=== PATIENT | female | born 1975 | race Caucasian/White ===

== ENCOUNTER 2019-06-23 09:54 | Emergency (ER) | payer MEDICAID ==
[2019-06-23] MEDS ORDERED: LORazepam 2 MG/ML VIAL IVP STA (10:30)
[2019-06-23] MEDS ORDERED: FOLIC ACID INJ 1 MG, THIAMINE INJ 100 MG, MAGNESIUM SULFATE 2 GM, MULTIVITAMIN 10 ML in... IV STA ×5 (10:30)
--- NOTE | 2019-06-23 10:34 | ED Physician Documentation ---
PD HPI CHEST PAIN - Stated complaint Stated Complaint: CHEST/BACK PX - Chief complaint Chief Complaint: Cardiac - History obtained from History obtained from: Patient, Family - History of Present Illness Timing - onset: Last night Timing - onset during: Rest Timing - duration: Hours Timing - details: Gradual onset, Still present Quality: Pressure, Throbbing Location: Upper back Radiation: Back Improved by: Rest Worsened by: Movement, Palpation Associated symptoms: Nausea, Feeling faint / dizzy. No: Shortness of air, Diaphoresis, Vomiting, General Weakness, Palpitations, Cough Similar symptoms before: Has not had sx before Recently seen: Not recently seen - Additional information Additional information: 43-year-old female with a prior history of pain has upper back pain and she has developed some palpitations in her chest.She has had this pain in her back a number of times and this feels similar. The palpitations she is having in her chest are not. She feels that she is not able to get her chest to calm down. She does relate a significant amount of stress and that their house has been for sale for some time and there is now somebody looking at it. Review of Systems Constitutional: reports: Myalgias, Fatigue. denies: Fever, Chills Eyes: denies: Decreased vision Ears: denies: Ear pain Nose: denies: Rhinorrhea / runny nose, Congestion Throat: denies: Sore throat Cardiac: reports: Chest pain / pressure, Palpitations. denies: Pedal edema, Calf pain Respiratory: denies: Dyspnea, Cough, Wheezing GI: reports: Nausea. denies: Abdominal Pain, Vomiting : denies: Dysuria, Frequency Skin: denies: Rash Musculoskeletal: reports: Back pain. denies: Neck pain Neurologic: denies: Generalized weakness, Focal weakness, Numbness PD PAST MEDICAL HISTORY - Past Medical History Past Medical History: Yes Cardiovascular: Hypertension - Present Medications Home Medications: Ambulatory Orders Medication Instructions Recorded Confirmed Azithromycin [Zithromax] 250 mg PO DAILY #6 tablet 06/23/19 Lorazepam [Ativan] 1 mg PO Q6HR PRN #14 tablet 06/23/19 - Allergies Allergies/Adverse Reactions: Allergies Allergy/AdvReac Type Severity Reaction Status Date / Time No Known Drug Allergies Allergy Verified 06/23/19 10:01 - Social History Does the pt smoke?: Yes Smoking Status: Current every day smoker PD ED PE NORMAL - Vitals Vital signs reviewed: Yes (Tachycardic and hypertensive.) - General General: Alert and oriented X 3, No acute distress, Well developed/nourished - HEENT HEENT: Atraumatic, PERRL, EOMI, Ears normal, Moist mucous membranes, Pharynx benign, Dentition benign - Neck Neck: Supple, no meningeal sign, No bony TTP - Cardiac Cardiac: No murmur, Other (Tachycardia to 110) - Respiratory Respiratory: No respiratory distress, Clear bilaterally, Other (There is point tenderness to the central spine of the back in the paraspinous muscles between the shoulder blades.) - Abdomen Abdomen: Soft, Non tender - Back Back: No CVA TTP - Derm Derm: Normal color, Warm and dry, No rash - Extremities Extremities: No deformity, No edema, No calf tenderness / cord - Neuro Neuro: Alert and oriented X 3, 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, No motor deficit, No sensory deficit, Normal speech Eye Opening: Spontaneous Motor: Obeys Commands Verbal: Oriented GCS Score: 15 - Psych Psych: Normal mood, Normal affect Results - Vitals Vitals: Vital Signs - 24 hr 06/23/19 06/23/19 06/23/19 09:58 11:18 12:55 Temperature 36.7 C Heart Rate 113 H 76 79 Respiratory 18 12 17 Rate Blood Pressure 151/109 H 141/91 H 137/82 H O2 Saturation 100 100 99 06/23/19 14:00 Temperature Heart Rate 92 Respiratory 18 Rate Blood Pressure O2 Saturation 99 Oxygen O2 Source Room air - EKG (time done) 1004 Rate: Rate (enter#) (100) Rhythm: NSR QRS: LVH Compare to prior EKG: Old EKG unavailable Computer interpretation: Agree with computer - Labs Labs: Laboratory Tests 06/23/19 06/23/19 06/23/19 10:10 10:10 10:10 WBC RBC Hgb Hct MCV MCH MCHC RDW Plt Count MPV Neut # (Auto) Lymph # (Auto) [place] # (Auto) Eos # (Auto) Baso # (Auto) Absolute Nucleated RBC Nucleated RBC % D-Dimer 658.9 H Sodium 137 Potassium 3.8 Chloride 101 Carbon Dioxide 23 Anion Gap 13.0 BUN 15 Creatinine 0.9 Estimated GFR (MDRD) 68 L Glucose 116 H Calcium 8.9 Total Bilirubin 0.7 AST 33 ALT 25 Alkaline Phosphatase 81 Troponin I High Sens 14.5 Total Protein 8.2 Albumin 4.4 Globulin 3.8 Albumin/Globulin Ratio 1.2 Lipase 21 L Ethyl Alcohol 06/23/19 06/23/19 10:10 11:09 WBC 7.7 RBC 4.41 Hgb 11.8 L Hct 36.2 L MCV 82.1 MCH 26.8 L MCHC 32.6 RDW 14.5 Plt Count 334 MPV 10.0 Neut # (Auto) 6.1 Lymph # (Auto) 1.0 L [place] # (Auto) 0.5 Eos # (Auto) 0.0 Baso # (Auto) 0.0 Absolute Nucleated RBC 0.00 Nucleated RBC % 0.0 D-Dimer Sodium Potassium Chloride Carbon Dioxide Anion Gap BUN Creatinine Estimated GFR (MDRD) Glucose Calcium Total Bilirubin AST ALT Alkaline Phosphatase Troponin I High Sens Total Protein Albumin Globulin Albumin/Globulin Ratio Lipase Ethyl Alcohol < 5.0 - Rads (name of study) CHEST Radiology: Prelim report reviewed (Impression: 1. No acute disease in the chest.), EMP read indepedently, See rad report CT angio chest Radiology: Prelim report reviewed (Impression: 1. No evidence of pulmonary embolus, aortic aneurysm or aortic dissection. 2. Small focal areas of right upper lobe groundglass opacity, nonspecific, although typically infectious/inflammatory in etiology. No areas of dense consolidation. No pleural effusions. No pneumothorax. 3. Mildly enlarged right axillary nodes asymmetric in comparison to the right. The entire right breast is not included. Follow-up nonemergent mammogram and ultrasound recommended. 4. Small to moderate hiatal hernia. 5. cholelithiasis. 6. No acute osseous abnormality.) Procedures - IVC sono (time) 1025 Bedside IVC sono: IVC measures (cm) (1.52), IVC collapsed c insp (cm) (0.82), Euvolemia PD MEDICAL DECISION MAKING - ED course Complexity details: reviewed old records, reviewed results, re-evaluated patient, considered differential, d/w patient, d/w family ED course: Previously well 43-year-old female with a sensation of palpitations in her chest arrives to the emergency department hypertensive and tachycardic and she is found to have a normal volume. She denies any likelihood of alcohol withdrawal as she states that she usually drinks 2 24 ounce beers per day and she has not deviated from that. She does indicate a significant amount of stress at home with a potential for their home being sold and a concern with where they will live. Here in the emergency department an IV is begun a banana bag is infused she is given a milligram of Ativan intravenously and a work-up was ensued including an x-ray of the patient's chest a d-dimer a troponin and electrocardiogram which does show some LVH. Her d-dimer is positive and a CT scan of the chest is obtained with contrast demonstrating a number of findings. She does not have pulmonary embolism or aortic disease. She does have a small hiatal hernia and she does have axillary lymphadenopathy with a concern for breast cancer as well as cholelithiasis. There is question of atypical infection in the right chest. I discussed the findings with the patient including need for follow-up mammogram and the presence of the hiatal hernia. She is given a GI cocktail without relief. She continues to have some soreness in the chest 1-07/09 and I have not come up with an explanation. She did feel the ativan helped some. Departure - Departure Disposition: Home, Self Care Clinical Impression: Atypical chest pain, Atypical pneumonia, Axillary lymphadenopathy, Anxiety Condition: Stable Instructions: ED Chest Pain Atypical Unkn Cause, Lymphadenopathy, ED Stress React, ED Pneumonia Adult Follow-Up: Bernadette Cruz PA [Provider Admit Priv/Credential] - Prescriptions: Lorazepam [Ativan] 1 mg PO Q6HR PRN #14 tablet PRN Reason: Anxiety Azithromycin [Zithromax] 250 mg PO DAILY #6 tablet Comments: Today there were several findings on your CAT scan. One important detail is to have a follow-up mammogram done of your right breast. There is a suspicion of the possibility of breast cancer. Follow-up with CARLEE Cruz. In addition there is the appearance of an atypical pneumonia on the CT and azithromycin is indicated. There is a hiatal hernia and gall stones present as well.
[2019-06-23 10:51] LABS: ALBUMIN 4.4 g/dL (3.2-5.5); ALBUMIN/GLOBULIN RATIO 1.2 (1.0-2.2); BILIRUBIN,TOTAL 0.7 mg/dL (0.2-1.0); CALCIUM 8.9 mg/dL (8.5-10.3); CREATININE 0.9 mg/dL (0.4-1.0); TOTAL PROTEIN 8.2 g/dL (6.7-8.2)
--- NOTE | 2019-06-23 11:03 | XRAY Report ---
Reason: chest/back pain Procedure Date: 06/23/2019 Accession Number: [id number] / [id number] Procedure: XR - Chest 2 View X-Ray CPT Code: 07906 Final Report FULL RESULT: EXAM: CHEST RADIOGRAPHY EXAM DATE: 06/23/2019 10:57 AM. CLINICAL HISTORY: Chest/back pain. COMPARISON: None. TECHNIQUE: 2 views. FINDINGS: Lungs/Pleura: No focal opacities evident. No pleural effusion. No pneumothorax. Normal volumes. Mediastinum: Heart and mediastinal contours are unremarkable. Other: Degenerative changes of the thoracic spine. IMPRESSION: 1. No acute disease in the chest. RADIA
[2019-06-23 11:14] LABS: BASOPHILS % (AUTO) 0.4 %; EOSINOPHILS % (AUTO) 0.4 %; HGB - HEMOGLOBIN 11.8 g/dL (12.0-16.0); LYMPHOCYTES % (AUTO) 13.1 %; MEAN CORPUSCULAR HEMOGLOBIN 26.8 pg (27.0-31.0); MEAN CORPUSCULAR HGB CONC 32.6 g/dL (32.0-36.0); MEAN CORPUSCULAR VOLUME 82.1 fL (81.0-99.0); MONOCYTES # (AUTO) 0.5 10^3/uL (0.0-1.0); MONOCYTES % (AUTO) 6.3 %; NEUTROPHILS # (AUTO) 6.1 10^3/uL (1.5-6.6); NEUTROPHILS % (AUTO) 79.5 %; PLT - PLATELET COUNT 334 10^3/uL (130-450); RED BLOOD COUNT 4.41 10^6/uL (4.20-5.40); RED CELL DISTRIBUTION WIDTH 14.5 % (12.0-15.0); WHITE BLOOD COUNT 7.7 x10^3/uL (4.8-10.8)
[2019-06-23] MEDS ORDERED: IOVERSOL 320 100 ML VIAL IVP ONE ×2 (12:15→13:22)
--- NOTE | 2019-06-23 13:51 | CT Report ---
Reason: elevated d-dimer Procedure Date: 06/23/2019 Accession Number: [id number] / [id number] Procedure: CT - ANGIO CHEST W/WO CPT Code: Final Report FULL RESULT: EXAM: CT ANGIOGRAM CHEST EXAM DATE: 06/23/2019 01:21 PM. CLINICAL HISTORY: Elevated D-dimer. COMPARISON: 06/23/2019. TECHNIQUE: Routine helical imaging was performed through the chest in the pulmonary arterial phase. IV Contrast: 80 cc of Optiray 320. Reconstructions: Coronal 3-D MIP reconstructions.Sagittal and coronal. In accordance with CT protocol optimization, one or more of the following dose reduction techniques were utilized for this exam: automated exposure control, adjustment of mA and/or KV based on patient size, or use of iterative reconstructive technique. FINDINGS: Pulmonary Arteries: Diagnostic quality: Adequate through the segmental arteries. No evidence for acute or chronic pulmonary emboli. RV/LV is within normal limits. There is no interventricular septal bowing. There is no reflux of contrast material in the IVC. Lungs/Pleura: No no bronchial obstruction. No pleural effusions. No pneumothorax. Small areas of groundglass opacity are seen in the right lung apex. Nor vascular congestion. Mediastinum: Heart size is normal. No mediastinal hematoma. Small to moderate hiatal hernia. Mildly prominent although subcentimeter mediastinal lymph nodes are identified. Prominent right axillary lymph nodes are seen slightly rounded measuring up to 8-9 mm in short axis dimension. The entire right and left breasts are not included. No internal mammary lymph node enlargement or inferior cervical lymph node enlargement is definitively identified. Visualized thyroid gland is unremarkable. Thoracic Aorta: Unremarkable. Upper Abdomen: Contracted gallbladder containing calcified gallstones. Otherwise included portions of the upper abdomen are unremarkable. Other: Degenerative changes of the thoracic spine. No acute osseous abnormality identified. IMPRESSION: 1. No evidence of pulmonary embolus, aortic aneurysm or aortic dissection. 2. Small focal areas of right upper lobe groundglass opacity, nonspecific, although typically infectious/inflammatory in etiology. No areas of dense consolidation. No pleural effusions. No pneumothorax. 3. Mildly enlarged right axillary nodes asymmetric in comparison to the right. The entire right breast is not included. Follow up nonemergent mammogram and ultrasound recommended. 4. Small to moderate hiatal hernia. 5. Cholelithiasis. 6. No acute osseous abnormality. RADIA
[2019-06-23] MEDS ORDERED: LIDOCAINE VISCOUS 2% 15 ML UDC MM STA (14:40)
[2019-06-23] MEDS ORDERED: MAG HYDROX/AL HYDROX/SIMETH 30 ML UDC PO STA (14:40)
[2019-06-23 15:27] VITALS: BP 162/97
== END 2019-06-23 15:27 | disposition home or self-care (01) ==
LOC: ED 09:54
DX: J18.9 Pneumonia, unspecified organism (principal); R07.89 Other chest pain; R59.0 Localized enlarged lymph nodes; F41.9 Anxiety disorder, unspecified; I11.9 Hypertensive heart disease without heart failure; R00.0 Tachycardia, unspecified; K44.9 Diaphragmatic hernia without obstruction or gangrene; K80.20 Calculus of gallbladder without cholecystitis without obstruction; R79.89 Other specified abnormal findings of blood chemistry; F17.200 Nicotine dependence, unspecified, uncomplicated
CPT/HCPCS: 36415; 71046; 71275; 80053; 80320; 83690; 84484; 85025; 85379; 93005; 96374; 99284; A9270; J2060; J3411; Q9967

== ENCOUNTER 2019-07-01 19:05 | Outpatient (CLI) | payer MEDICAID | END 2019-07-01 19:06 | disposition critical access hospital (66) | LOC: EMS 19:05 | PROVIDERS: ATTEND Surgery | DX: R07.9 Chest pain, unspecified (principal); R42 Dizziness and giddiness; R23.1 Pallor | CPT/HCPCS: A0425; A0429; A0999 ==

== ENCOUNTER 2019-07-01 19:41 | Emergency (ER) | payer MEDICAID ==
--- NOTE | 2019-07-01 19:48 | ED Physician Documentation ---
History of Present Illness - Stated complaint Stated Complaint: CP - Chief complaint Chief Complaint: Cardiac - History obtained from History obtained from: Patient (Patient is a 43-year-old female who presents with a chief complaint of chest pain, syncope, lightheadedness she was seen here 1 week ago and had a work-up that included a negative CT of the chest and negative chest x-ray she was started on azithromycin At that time.She denies any personal family history of sudden in young age and mother, father, brother sister.She also was given a prescription for benzodiazepines that she reports she has been taking as well.She denies any illicit drug use or excessive alcohol use.She denies any history of [place] or stroke or any history of pulmonary embolism or DVT.) Review of Systems Constitutional: reports: Reviewed and negative Eyes: reports: Reviewed and negative Ears: reports: Reviewed and negative Nose: reports: Reviewed and negative Throat: reports: Reviewed and negative Cardiac: reports: Chest pain / pressure, Palpitations Respiratory: reports: Reviewed and negative GI: reports: Reviewed and negative : reports: Reviewed and negative Skin: reports: Reviewed and negative Musculoskeletal: reports: Reviewed and negative. denies: Neck pain, Back pain Neurologic: reports: Near syncope, Syncope. denies: Generalized weakness, Focal weakness, Numbness, Difficulty speaking, Seizure, Confused, Altered mental status, Headache, Head injury Psychiatric: reports: Reviewed and negative Endocrine: reports: Reviewed and negative Immunocompromised: reports: Reviewed and negative PD PAST MEDICAL HISTORY - Past Medical History Cardiovascular: Hypertension Respiratory: Asthma - Past Surgical History HEENT: Other - Present Medications Home Medications: Ambulatory Orders Medication Instructions Recorded Confirmed Azithromycin [Zithromax] 250 mg PO DAILY #6 tablet 06/23/19 Lorazepam [Ativan] 1 mg PO Q6HR PRN #14 tablet 06/23/19 - Allergies Allergies/Adverse Reactions: Allergies Allergy/AdvReac Type Severity Reaction Status Date / Time No Known Drug Allergies Allergy Verified 07/01/19 19:43 - Social History Does the pt smoke?: Yes Smoking Status: Current every day smoker Does the pt drink ETOH?: Yes Does the pt have substance abuse?: No PD ED PE NORMAL - Vitals Vital signs reviewed: Yes - General General: Alert and oriented X 3, No acute distress, Well developed/nourished - HEENT HEENT: Atraumatic, PERRL, EOMI, Ears normal, Moist mucous membranes, Pharynx benign - Neck Neck: Supple, no meningeal sign, No bony TTP, No adenopathy, Thyroid normal, No JVD, No bruit - Cardiac Cardiac: RRR, No murmur, Strong equal pulses - Respiratory Respiratory: No respiratory distress, Clear bilaterally - Abdomen Abdomen: Normal bowel sounds, Soft, Non tender, Non distended - Back Back: No CVA TTP, No spinal TTP - Derm Derm: Normal color, Warm and dry, No rash - Extremities Extremities: No deformity, No tenderness to palpate, Normal ROM s pain, No edema, No calf tenderness / cord - Neuro Neuro: Alert and oriented X 3, 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, No motor deficit, No sensory deficit, Normal speech - Psych Psych: Normal mood, Normal affect Results - Vitals Vitals: Vital Signs - 24 hr 07/01/19 07/01/19 19:43 19:53 Temperature 37.9 C H 37.9 C H Heart Rate 90 85 Respiratory 18 14 Rate Blood Pressure 134/97 H 134/97 H O2 Saturation 100 99 Oxygen O2 Source Room air - EKG (time done) 19:45 Rate: Other (Rate of 77 HI interval 129 QRS 107 QTC 444 P waves are upright in leads I, II and III inverted in aVR there is no HI depression elevation in leads to aVR respectively there is mild left axis deviation there is good R wave progression there is no acute ST segment elevation or depression there is no shortened HI interval and there is no biphasic T waves.) - Labs Labs: Laboratory Tests 07/01/19 07/01/19 07/01/19 20:45 20:45 20:45 WBC RBC Hgb Hct MCV MCH MCHC RDW Plt Count MPV Neut # (Auto) Lymph # (Auto) [place] # (Auto) Eos # (Auto) Baso # (Auto) Absolute Nucleated RBC Nucleated RBC % Sodium 132 L Potassium 3.7 Chloride 98 L Carbon Dioxide 21 Anion Gap 13.0 BUN 23 H Creatinine 0.9 Estimated GFR (MDRD) 68 L Glucose 96 Calcium 9.2 Total Bilirubin 0.6 AST 23 ALT 24 Alkaline Phosphatase 65 Troponin I High Sens 7.6 B-Natriuretic Peptide 7 Total Protein 7.9 Albumin 4.2 Globulin 3.7 Albumin/Globulin Ratio 1.1 Lipase 22 Urine Color Urine Clarity Urine pH Ur Specific [place] Urine Protein Urine Glucose (UA) Urine Ketones Urine Occult Blood Urine Nitrite Urine Bilirubin Urine Urobilinogen Ur Leukocyte Esterase Urine RBC Urine WBC Ur Squamous Epith Cells Urine Bacteria Urine Mucus Ur Microscopic Review Urine Culture Comments Urine HCG, Qual Urine Opiates Screen Ur Oxycodone Screen Urine Methadone Screen Ur Propoxyphene Screen Ur Barbiturates Screen Ur Tricyclics Screen Ur Phencyclidine Scrn Ur Amphetamine Screen U Methamphetamines Scrn U Benzodiazepines Scrn Urine Cocaine Screen U Cannabinoids Screen Ethyl Alcohol < 5.0 Influenza A (Rapid) Influenza B (Rapid) 07/01/19 07/01/19 07/01/19 20:45 21:10 21:10 WBC 7.3 RBC 4.49 Hgb 11.9 L Hct 38.2 MCV 85.1 MCH 26.5 L MCHC 31.2 L RDW 14.6 Plt Count 365 MPV 10.4 Neut # (Auto) 5.5 Lymph # (Auto) 1.2 L [place] # (Auto) 0.6 Eos # (Auto) 0.1 Baso # (Auto) 0.1 Absolute Nucleated RBC 0.00 Nucleated RBC % 0.0 Sodium Potassium Chloride Carbon Dioxide Anion Gap BUN Creatinine Estimated GFR (MDRD) Glucose Calcium Total Bilirubin AST ALT Alkaline Phosphatase Troponin I High Sens B-Natriuretic Peptide Total Protein Albumin Globulin Albumin/Globulin Ratio Lipase Urine Color YELLOW Urine Clarity CLEAR Urine pH 6.0 Ur Specific [place] 1.025 Urine Protein 30 H Urine Glucose (UA) NEGATIVE Urine Ketones TRACE Urine Occult Blood NEGATIVE Urine Nitrite NEGATIVE Urine Bilirubin NEGATIVE Urine Urobilinogen 0.2 (NORMAL) Ur Leukocyte Esterase NEGATIVE Urine RBC 0-5 Urine WBC 0-3 Ur Squamous Epith Cells MANY Squamous H Urine Bacteria Few Urine Mucus Few Strands Ur Microscopic Review INDICATED Urine Culture Comments NOT INDICATED Urine HCG, Qual NEGATIVE Urine Opiates Screen NEGATIVE Ur Oxycodone Screen NEGATIVE Urine Methadone Screen NEGATIVE Ur Propoxyphene Screen NEGATIVE Ur Barbiturates Screen NEGATIVE Ur Tricyclics Screen NEGATIVE Ur Phencyclidine Scrn NEGATIVE Ur Amphetamine Screen NEGATIVE U Methamphetamines Scrn NEGATIVE U Benzodiazepines Scrn POSITIVE H Urine Cocaine Screen NEGATIVE U Cannabinoids Screen POSITIVE H Ethyl Alcohol Influenza A (Rapid) Influenza B (Rapid) 07/01/19 21:25 WBC RBC Hgb Hct MCV MCH MCHC RDW Plt Count MPV Neut # (Auto) Lymph # (Auto) [place] # (Auto) Eos # (Auto) Baso # (Auto) Absolute Nucleated RBC Nucleated RBC % Sodium Potassium Chloride Carbon Dioxide Anion Gap BUN Creatinine Estimated GFR (MDRD) Glucose Calcium Total Bilirubin AST ALT Alkaline Phosphatase Troponin I High Sens B-Natriuretic Peptide Total Protein Albumin Globulin Albumin/Globulin Ratio Lipase Urine Color Urine Clarity Urine pH Ur Specific [place] Urine Protein Urine Glucose (UA) Urine Ketones Urine Occult Blood Urine Nitrite Urine Bilirubin Urine Urobilinogen Ur Leukocyte Esterase Urine RBC Urine WBC Ur Squamous Epith Cells Urine Bacteria Urine Mucus Ur Microscopic Review Urine Culture Comments Urine HCG, Qual Urine Opiates Screen Ur Oxycodone Screen Urine Methadone Screen Ur Propoxyphene Screen Ur Barbiturates Screen Ur Tricyclics Screen Ur Phencyclidine Scrn Ur Amphetamine Screen U Methamphetamines Scrn U Benzodiazepines Scrn Urine Cocaine Screen U Cannabinoids Screen Ethyl Alcohol Influenza A (Rapid) Negative Influenza B (Rapid) Negative PD MEDICAL DECISION MAKING - ED course Complexity details: reviewed old records (Patient's previous medical records were reviewed it appeared the patient was treated for some sort of atypical pneumonia with azithromycin as she had a CT of the chest to rule out pulmonary embolism which was negative for pulmonary embolism however CT possibly showed some area of inflammation or infection patient ultimately was treated with azithromycin her sodium was low today at 132 her previous sodium level is 137.The patient does report an associated cough and some associated lightheadedness this could possibly explain her symptoms currently.The patient currently is afebrile but her temperature is 37.9 Celsius.), re-evaluated patient (patient reexamined, she is non toxic appearing. she was updated on results. informed of hyponatremia. patient has finished azithromycin. patient will be discharged with close follow up.) Departure - Departure Disposition: 01 Home, Self Care Clinical Impression: Near syncope, Walking pneumonia, Hyponatremia Condition: Good Instructions: Pneumia Mycoplasma, Hyponatremia Dc Follow-Up: YOUR,DOCTOR [Other] Comments: Follow up with your primary care provider this week. Return to the emergency department with any concerns.
[2019-07-01] MEDS ORDERED: SODIUM CHLORIDE 0.9% 1,000 ML IV ONE (20:04)
--- NOTE | 2019-07-01 20:55 | XRAY Report ---
Reason: SOB Procedure Date: 07/01/2019 Accession Number: [id number] / [id number] Procedure: XR - Chest 1 View X-Ray CPT Code: 40789 Final Report FULL RESULT: EXAM: CHEST RADIOGRAPHY EXAM DATE: 07/01/2019 08:18 PM. CLINICAL HISTORY: SOB. COMPARISON: CHEST 2 VIEW 06/23/2019 10:42 AM. TECHNIQUE: 1 view. FINDINGS: Lungs/Pleura: No focal opacities evident. No pleural effusion. No pneumothorax. Mediastinum: Heart size is normal. Trachea is midline. Other: None. IMPRESSION: Negative for an acute cardiopulmonary abnormality. RADIA
--- NOTE | 2019-07-01 21:02 | CT Report ---
Reason: SYNCOPE Procedure Date: 07/01/2019 Accession Number: [id number] / [id number] Procedure: CT - HEAD WO CPT Code: Final Report FULL RESULT: EXAM: CT HEAD EXAM DATE: 07/01/2019 08:32 PM. CLINICAL HISTORY: SYNCOPE. Loss of consciousness. Lightheaded. COMPARISON: None. TECHNIQUE: Multiaxial CT images were obtained from the foramen magnum to the vertex. Reformats: Sagittal and coronal. IV contrast: None. In accordance with CT protocol optimization, one or more of the following dose reduction techniques were utilized for this exam: automated exposure control, adjustment of mA and/or KV based on patient size, or use of iterative reconstructive technique. FINDINGS: Parenchyma: There appears to be mild bilateral frontal lobe atrophy with prominence of the CSF space. No mass-effect or midline shift. No evidence for edema. No evidence for acute intracranial hemorrhage. Extraaxial Spaces: Normal for age. No subdural or epidural collections identified. Ventricles: Normal in size and position. Sinuses and Orbits: Imaged paranasal sinuses, orbits, and mastoids show no significant abnormality. Bones: No evidence of fracture or calvarial defect. IMPRESSION: No acute findings are seen. There appears to be mild bilateral frontal lobe atrophy with prominence of the CSF space. RADIA
[2019-07-01 21:05] LABS: BASOPHILS # (AUTO) 0.1 10^3/uL (0.0-0.1); BASOPHILS % (AUTO) 0.7 %; EOSINOPHILS # (AUTO) 0.1 10^3/uL (0.0-0.7); EOSINOPHILS % (AUTO) 1.1 %; HGB - HEMOGLOBIN 11.9 g/dL (12.0-16.0); LYMPHOCYTES # (AUTO) 1.2 10^3/uL (1.5-3.5); LYMPHOCYTES % (AUTO) 15.7 %; MEAN CORPUSCULAR HEMOGLOBIN 26.5 pg (27.0-31.0); MEAN CORPUSCULAR HGB CONC 31.2 g/dL (32.0-36.0); MEAN CORPUSCULAR VOLUME 85.1 fL (81.0-99.0); MEAN PLATELET VOLUME 10.4 fL (7.9-10.8); MONOCYTES # (AUTO) 0.6 10^3/uL (0.0-1.0); MONOCYTES % (AUTO) 7.8 %; NEUTROPHILS # (AUTO) 5.5 10^3/uL (1.5-6.6); NEUTROPHILS % (AUTO) 74.4 %; PLT - PLATELET COUNT 365 10^3/uL (130-450); RED BLOOD COUNT 4.49 10^6/uL (4.20-5.40); RED CELL DISTRIBUTION WIDTH 14.6 % (12.0-15.0); WHITE BLOOD COUNT 7.3 x10^3/uL (4.8-10.8)
[2019-07-01 21:19] LABS: ALBUMIN 4.2 g/dL (3.2-5.5); ALBUMIN/GLOBULIN RATIO 1.1 (1.0-2.2); ALKALINE PHOSPHATASE 65 IU/L (42-121); ALT ALANINE AMINOTRANSFERASE 24 IU/L (10-60); AST ASPARTATE AMINOTRANSFERASE 23 IU/L (10-42); BILIRUBIN,TOTAL 0.6 mg/dL (0.2-1.0); BUN - BLOOD UREA NITROGEN 23 mg/dL (6-20); CALCIUM 9.2 mg/dL (8.5-10.3); CARBON DIOXIDE - CO2 21 mmol/L (21-32); CHLORIDE 98 mmol/L (101-111); CREATININE 0.9 mg/dL (0.4-1.0); GFR - MDRD 68 (>89); GLUCOSE 96 mg/dL (70-100); LIPASE 22 U/L (22-51); SODIUM 132 mmol/L (135-145); TOTAL PROTEIN 7.9 g/dL (6.7-8.2)
[2019-07-01 21:20] LABS: MUDS CUTOFF CONCENTRATIONS CUTOFF CONC BELOW:
[2019-07-01 21:25] LABS: BILIRUBIN,URINE NEGATIVE (NEGATIVE); GLUCOSE, URINE (UA) NEGATIVE (NEGATIVE); KETONES,URINE (UA) TRACE mg/dL (NEGATIVE); LEUKOCYTE ESTERASE, URINE NEGATIVE (NEGATIVE); NITRITE,URINE NEGATIVE (NEGATIVE); OCCULT BLOOD,URINE NEGATIVE (NEGATIVE); PROTEIN,URINE 30 mg/dL (NEGATIVE); UROBILINOGEN,URINE 0.2 (NORMAL) E.U./dL (NORMAL)
[2019-07-01 21:28] LABS: CLARITY,URINE CLEAR (CLEAR); HCG UR QUAL NEGATIVE
[2019-07-01 21:39] LABS: AMPHETAMINE SCREEN,URINE NEGATIVE (NEGATIVE); BENZODIAZEPINES SCREEN, URINE POSITIVE (NEGATIVE); COCAINE SCREEN URINE NEGATIVE (NEGATIVE); METHADONE SCREEN, URINE NEGATIVE (NEGATIVE); METHAMPHETAMINES SCREEN, URINE NEGATIVE (NEGATIVE); OPIATE SCREEN, URINE NEGATIVE (NEGATIVE); OXYCODONE SCREEN, URINE NEGATIVE (NEGATIVE); PROPOXYPHENE SCREEN, URINE NEGATIVE (NEGATIVE); TRICYCLIC ANTIDEPRESSANT,URINE NEGATIVE (NEGATIVE)
[2019-07-01 21:46] LABS: BACTERIA,URINE Few /HPF (None Seen); MUCUS,URINE Few Strands; RBC,URINE 0-5 /HPF (0-5); SQUAMOUS EPITHELIAL CELL,UR MANY Squamous (<= Few)
[2019-07-01 22:23] VITALS: BP 120/81
== END 2019-07-01 22:24 | disposition home or self-care (01) ==
LOC: EDUNIT# → ED 19:41
DX: R55 Syncope and collapse (principal); J18.9 Pneumonia, unspecified organism; E87.1 Hypo-osmolality and hyponatremia; I10 Essential (primary) hypertension; F17.200 Nicotine dependence, unspecified, uncomplicated
CPT/HCPCS: 36415; 70450; 71045; 80053; 80306; 80320; 81001; 81003; 81025; 83690; 83880; 84484; 85025; 87086; 87275; 87276; 93005; 99284; 99285

== ENCOUNTER 2019-07-22 12:12 | Emergency (ER) | payer MEDICAID ==
[2019-07-22 12:53] LABS: RAPID STREP SCREEN Negative (Negative)
[2019-07-22] MEDS ORDERED: DEXAMETHASONE 10 MG/ML VIAL PO STA (13:27)
[2019-07-22] MEDS ORDERED: CHERRY SYRUP 10 ML UDC PO ONE (13:27)
--- NOTE | 2019-07-22 13:33 | ED Physician Documentation ---
PD HPI URI - Stated complaint Stated Complaint: THROAT SWELLING - Chief complaint Chief Complaint: Heent - History obtained from History obtained from: Patient, Family - History of Present Illness Timing - onset: How many days ago (5) Timing duration: Days (5) Timing details: Gradual onset, Still present Associated symptoms: Nasal congestion, Rhinorrhea, Sore throat, Dry cough, Dyspnea. No: Fever, Chills Contributing factors: Sick contact Improves by: Rest, Medication Worsened by: Activity Similar symptoms before: Diagnosis (pneumonia) Recently seen: Emergency Dept - Additional information Additional information: 43-year-old female who had an atypical pneumonia at the end of May has finished a 5-day course of azithromycin for that and she was seen again in the emergency department for a syncopal episode at the conclusion of that treatment. There were no new findings. Today the patient is in the emergency department with a sensation that her throat is closing up. She has had a cough over the past week and she feels something tickling in the back of her throat. She has not had any production of sputum with a cough she has not had any fever she has been using her inhaler but no more than usual. Review of Systems Constitutional: denies: Fever, Chills, Myalgias Eyes: denies: Decreased vision Ears: denies: Ear pain Nose: reports: Rhinorrhea / runny nose, Congestion Throat: reports: Sore throat. denies: Dental pain / toothache Cardiac: denies: Chest pain / pressure, Palpitations Respiratory: reports: Cough. denies: Dyspnea GI: denies: Abdominal Pain, Nausea, Vomiting : denies: Dysuria, Frequency PD PAST MEDICAL HISTORY - Past Medical History Past Medical History: Yes Cardiovascular: Hypertension Respiratory: Asthma - Past Surgical History Past Surgical History: Yes HEENT: Other - Present Medications Home Medications: Ambulatory Orders Medication Instructions Recorded Confirmed Azithromycin [Zithromax] 250 mg PO DAILY #6 tablet 06/23/19 Lorazepam [Ativan] 1 mg PO Q6HR PRN #14 tablet 06/23/19 Amox/Clav 875/125 [Augmentin] 1 each PO Q12H #20 tablet 07/22/19 - Allergies Allergies/Adverse Reactions: Allergies Allergy/AdvReac Type Severity Reaction Status Date / Time No Known Drug Allergies Allergy Verified 07/22/19 13:22 - Social History Does the pt smoke?: Yes Smoking Status: Current every day smoker Does the pt drink ETOH?: Yes Does the pt have substance abuse?: No - Immunizations Immunizations are current?: Yes - POLST Patient has POLST: No PD ED PE NORMAL - Vitals Vital signs reviewed: Yes (hpyertensive ) - General General: Alert and oriented X 3, No acute distress, Well developed/nourished - HEENT HEENT: Atraumatic, PERRL, EOMI, Ears normal, Other (The uvula is mildly swollen it is not erythematous there is no exudate teeth are without evidence of drainage.) - Neck Neck: Supple, no meningeal sign, No bony TTP - Cardiac Cardiac: RRR, No murmur - Respiratory Respiratory: No respiratory distress, Other (Diminished breath sounds) - Abdomen Abdomen: Soft, Non tender - Back Back: No CVA TTP, No spinal TTP - Derm Derm: Normal color, Warm and dry, No rash - Extremities Extremities: No deformity, No edema - Neuro Neuro: Alert and oriented X 3, 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, No motor deficit, No sensory deficit, Normal speech Eye Opening: Spontaneous Motor: Obeys Commands Verbal: Oriented GCS Score: 15 - Psych Psych: Normal mood, Normal affect Results - Vitals Vitals: Vital Signs - 24 hr 07/22/19 07/22/19 07/22/19 12:20 12:25 12:39 Temperature 36.3 C L 36.5 C Heart Rate 97 97 90 Respiratory 16 16 14 Rate Blood Pressure 157/117 H 157/117 H 150/100 H O2 Saturation 99 99 100 07/22/19 14:08 Temperature Heart Rate 75 Respiratory 15 Rate Blood Pressure 157/92 H O2 Saturation 96 Oxygen O2 Source Room air - Labs Labs: Laboratory Tests 07/22/19 12:33 Group A Strep Rapid Negative - Rads (name of study) chest Radiology: Prelim report reviewed (Impression: No acute findings.), EMP read indepedently, See rad report PD MEDICAL DECISION MAKING - ED course Complexity details: considered differential, d/w patient ED course: 43-year-old female with a persistent cough feels that her throat is swelling in the back she does have some mild enlargement of the uvula toward is touching the back of her throat. She is administered 10 mg of dexamethasone here orally Departure - Departure Disposition: 01 Home, Self Care Clinical Impression: Uvulitis Condition: Stable Instructions: ED Uvulitis Follow-Up: [facility] [Provider Group] Prescriptions: Amox/Clav 875/125 [Augmentin] 1 each PO Q12H #20 tablet
--- NOTE | 2019-07-22 14:32 | XRAY Report ---
Reason: persistent cough Procedure Date: 07/22/2019 Accession Number: [id number] / [id number] Procedure: XR - Chest 2 View X-Ray CPT Code: 41269 Final Report FULL RESULT: EXAM: CHEST RADIOGRAPHY EXAM DATE: 07/22/2019 02:00 PM. CLINICAL HISTORY: Persistent cough for 5 days. COMPARISON: 07/01/2019 radiograph. TECHNIQUE: 2 views. FINDINGS: Lungs/Pleura: No focal opacities evident. No pleural effusion. No pneumothorax. Normal volumes. Mediastinum: Heart and mediastinal contours are unremarkable. Other: Minimal anterior endplate spurring is in the thoracic spine. IMPRESSION: No acute findings. RADIA
[2019-07-22 15:00] VITALS: BP 150/96
== END 2019-07-22 14:59 | disposition home or self-care (01) ==
LOC: ED 12:12
DX: K12.2 Cellulitis and abscess of mouth (principal); I10 Essential (primary) hypertension; F17.200 Nicotine dependence, unspecified, uncomplicated
CPT/HCPCS: 71046; 87070; 87430; 99284; A9270

== ENCOUNTER 2020-01-21 10:20 | Outpatient (CLI) | payer MEDICAID ==
--- NOTE | 2020-01-22 09:27 | Mammography Report ---
BILATERAL DIGITAL DIAGNOSTIC MAMMOGRAM 3D/2D: 01/21/2020 CLINICAL: Patient is here to follow up on an incidental finding on CT Chest done 06/23/2019 / [facility] Baseline mammogram. No prior exams were available for comparison. CT chest 06/23/2019. The tissue of both breasts is heterogeneously dense. This may lower the sensitivity of mammography. No significant masses, calcifications, or other findings are seen in either breast. IMPRESSION: INCOMPLETE: NEEDS ADDITIONAL IMAGING EVALUATION No mammographic evidence of malignancy. A targeted ultrasound of the right axilla is recommended for previously seen asymmetric lymph nodes. This exam was interpreted at Station ID: [id number]. NOTE: For mammograms, a report in lay terms will be sent to the patient. Approximately 15% of breast malignancies will not be visualized mammographically. In the management of a palpable breast mass, a negative mammogram must not discourage biopsy of a clinically suspicious lesion. Electronically Signed By: Thuan Arvizu M.D. slc/:01/21/2020 12:18:42 ACR BI-RADS Category 0: Incomplete 3340F PARENCHYMAL PATTERN: (D) - The breast(s) demonstrate(s) heterogeneously dense fibroglandular parjessiey ma. BI-RADS CATEGORY: (0) - 0 Ultrasound [id number] Immediate follow-up LATERALITY: (B)
--- NOTE | 2020-01-22 09:27 | Ultrasound Report ---
LIMITED ULTRASOUND OF RIGHT BREAST AND AXILLA: 01/21/2020 CLINICAL: Patient returns today to evaluate asymmetry in the right breast. Patient returns today to e valuate a density in the right breast. Comparison is made to exam dated: 01/21/2020 mammogram - [facility]. Real-time ultrasound of the right breast upper outer quadrant and axilla regions was performed. Houser scale images of the real-time examination were reviewed. No significant abnormalities were seen sonographically in the right breast or the right axilla. IMPRESSION: NEGATIVE There is no sonographic evidence of malignancy. A 1 year screening mammogram is recommended. Exam findings were conveyed to the patient. This exam was interpreted at Station ID: [id number]. Electronically Signed By: Thuan Arvizu M.D. slc/:01/21/2020 12:20:16 Ultrasound BI-RADS: 1 Negative BI-RADS CATEGORY: (1) - 1 RECOMMENDATION: (ANNUAL) - Recommend routine annual screening mammography. [id number] 1 year screening LATERALITY: (B)
== END 2020-01-21 10:21 | disposition home or self-care (01) ==
LOC: DI 10:20
PROVIDERS: ATTEND Registered Nurse
DX: R59.0 Localized enlarged lymph nodes (principal); R92.8 Other abnormal and inconclusive findings on diagnostic imaging of breast
CPT/HCPCS: 76642; 77066

== ENCOUNTER 2020-10-03 10:45 | Emergency (ER) | payer MEDICAID ==
--- NOTE | 2020-10-03 11:45 | ED Physician Documentation ---
PD HPI HEENT - Stated complaint Stated Complaint: SOA/TOOTH PX - Chief complaint Chief Complaint: General - History obtained from History obtained from: Patient - History of Present Illness Timing - onset: Today (had had dental infection right lower molar and got Rx Amox by dental office. was feeling better and finished abx 3 days ago. Now with return of swelling and pain same dental area.) Timing - duration: Days (had pain for days last week until abx and again starting today quickly) Timing - details: Abrupt onset, Still present Location: Tooth (right lower molar) Associated symptoms: Facial swelling. No: Fever, Swollen nodes, Headache Recently seen: Clinic (dentist last week and has appt for extraction this coming week.) Review of Systems Constitutional: denies: Fever, Chills Throat: denies: Sore throat Respiratory: denies: Cough PD PAST MEDICAL HISTORY - Past Medical History Cardiovascular: Hypertension Respiratory: Asthma - Past Surgical History Past Surgical History: Yes HEENT: Other - Present Medications Home Medications: Ambulatory Orders Medication Instructions Recorded Confirmed Clindamycin [Cleocin] 300 mg PO TID 7 Days #20 cap 10/03/20 HYDROcod/ACETAM 5/325 [[place] 5/325] 1 ea PO Q6H PRN #15 tablet 10/03/20 Lisinopril/Hydrochlorothiazide 1 each PO DAILY #20 tablet 10/03/20 [Zestoretic 20-12.5 mg Tablet] Lisinopril/Hydrochlorothiazide 1 each PO DAILY 10/03/20 10/03/20 [Zestoretic 20-25 mg Tablet] Ondansetron Odt [Zofran] 4 mg TL Q6H PRN #15 tablet 10/03/20 Sucralfate [Carafate] 1 gm PO QPM #30 tablet 10/03/20 - Allergies Allergies/Adverse Reactions: Allergies Allergy/AdvReac Type Severity Reaction Status Date / Time No Known Drug Allergies Allergy Verified 10/03/20 10:51 - Social History Does the pt smoke?: Yes Smoking Status: Current every day smoker Does the pt drink ETOH?: Yes Does the pt have substance abuse?: No - Immunizations Immunizations are current?: Yes - POLST Patient has POLST: No PD ED PE NORMAL - Vitals Vital signs reviewed: Yes - General General: Alert and oriented X 3, Well developed/nourished, Other (appears in pain due to right lower tooth, with local swelling right mandible/face. ) - HEENT HEENT: Moist mucous membranes, Pharynx benign. No: Dentition benign (right lower 3rd molar with significant decay and gum on buccal side with swelling. No fluctuance per se. Locally tender. ) - Neck Neck: Supple, no meningeal sign, No adenopathy - Cardiac Cardiac: RRR, No murmur - Respiratory Respiratory: Clear bilaterally - Derm Derm: Normal color, Warm and dry - Neuro Neuro: Alert and oriented X 3, No motor deficit, No sensory deficit, Normal speech Results - Vitals Vitals: Vital Signs - 24 hr 10/03/20 10/03/20 10/03/20 10:45 11:55 12:37 Temperature 36.7 C Heart Rate 77 81 82 Respiratory 16 16 16 Rate Blood Pressure 184/99 H 168/100 H 189/104 H O2 Saturation 99 100 98 Oxygen O2 Source Room air PD MEDICAL DECISION MAKING - ED course Complexity details: considered differential, d/w patient Departure - Departure Disposition: 01 Home, Self Care Clinical Impression: Dental infection, Pain, dental Reflux esophagitis Qualifiers: Esophagitis bleeding: without hemorrhage Qualified Code(s): K21.00 - Gastro- esophageal reflux disease with esophagitis, without bleeding Hypertension Qualifiers: Hypertension type: unspecified Qualified Code(s): I10 - Essential (primary) hypertension Condition: Stable Record reviewed to determine appropriate education?: Yes Instructions: ED Abscess Dental Follow-Up: Hanh Smallwood ARNP [Primary Care Provider] - Prescriptions: Sucralfate [Carafate] 1 gm PO QPM #30 tablet Clindamycin [Cleocin] 300 mg PO TID 7 Days #20 cap HYDROcod/ACETAM 5/325 [[place] 5/325] 1 ea PO Q6H PRN #15 tablet PRN Reason: Pain Lisinopril/Hydrochlorothiazide [Zestoretic 20-12.5 mg Tablet] 1 each PO DAILY #20 tablet Ondansetron Odt [Zofran] 4 mg TL Q6H PRN #15 tablet PRN Reason: Nausea / Vomiting Comments: Hydrated. Tylenol every 6 hours if needed for pain or hydrocodone if needed for worse pain. Continue your omeprazole twice daily for now and then once daily after a week if you are feeling better regarding the reflux. I had sacral fate at night before bed to see if it helps reduce the overnight refluxing and irritation. Also prop the head of the bed up slightly or sleep with added pillow. No meals for several hours before bed and no evening alcohol to help reduce reflux as well. I wrote a short-term prescription for your blood pressure medicine until you are able to get regular refills from your primary care. Clindamycin antibiotic 3 times daily for the infection. Ondansetron if needed for nausea. Follow-up with the dentist as planned later this week. Discharge Date/Time: 10/03/20 13:14
[2020-10-03] MEDS ORDERED: CLINDAMYCIN 150 MG CAPSULE PO STA (12:24)
[2020-10-03] MEDS ORDERED: ONDANSETRON ODT 4 MG TABLET TL STA (12:24)
[2020-10-03] MEDS ORDERED: ACETAMINOPHEN 325 MG TABLET PO STA (12:24)
[2020-10-03] MEDS ORDERED: MAG HYDROX/AL HYDROX/SIMETH 30 ML UDC PO STA (12:24)
[2020-10-03 12:39] VITALS: BP 189/104
== END 2020-10-03 13:14 | disposition home or self-care (01) ==
LOC: ED 10:45
DX: K04.7 Periapical abscess without sinus (principal); K21.00 Gastro-esophageal reflux disease with esophagitis, without bleeding; I10 Essential (primary) hypertension; F17.200 Nicotine dependence, unspecified, uncomplicated; Z79.899 Other long term (current) drug therapy
CPT/HCPCS: 99284; A9270; Q0162

== ENCOUNTER 2020-11-05 11:59 | Outpatient (CLI) | payer MEDICAID | END 2020-11-05 12:00 | disposition critical access hospital (66) | LOC: EMS 11:59 | DX: R55 Syncope and collapse (principal) | CPT/HCPCS: A0425; A0427; A0999 ==

== ENCOUNTER 2020-11-05 12:30 | Emergency (ER) | payer MEDICAID ==
--- OUTSIDE RECORDS SUMMARY | 2020-11-05 12:54 | EXTERNAL MEDICAL SUMMARY RPT | Continuity of Care Document ---
:1975 Demographics Phone Unavailable Preferred Language Unknown Marital Status Unknown Voodoo Affiliation Unknown Race Unknown Ethnic Group Unknown Author Organization [place] Address [address] [phone] Phone Allergies Encounters Medications Problems Results
[2020-11-05 13:15] VITALS: BP 117/71
[2020-11-05] MEDS ORDERED: SODIUM CHLORIDE 0.9% 1,000 ML IV STA ×2 (13:17)
[2020-11-05 13:23] LABS: BASOPHILS # (AUTO) 0.1 10^3/uL (0.0-0.1); BASOPHILS % (AUTO) 0.3 %; EOSINOPHILS # (AUTO) 0.1 10^3/uL (0.0-0.7); EOSINOPHILS % (AUTO) 0.4 %; HCT - HEMATOCRIT 42.8 % (37.0-47.0); HGB - HEMOGLOBIN 13.6 g/dL (12.0-16.0); LYMPHOCYTES # (AUTO) 1.4 10^3/uL (1.5-3.5); LYMPHOCYTES % (AUTO) 5.7 %; MEAN CORPUSCULAR HEMOGLOBIN 26.5 pg (27.0-31.0); MEAN CORPUSCULAR HGB CONC 31.8 g/dL (32.0-36.0); MEAN CORPUSCULAR VOLUME 83.3 fL (81.0-99.0); MEAN PLATELET VOLUME 10.2 fL (7.9-10.8); MONOCYTES # (AUTO) 0.8 10^3/uL (0.0-1.0); NEUTROPHILS # (AUTO) 22.7 10^3/uL (1.5-6.6); NEUTROPHILS % (AUTO) 90.1 %; PLT - PLATELET COUNT 381 10^3/uL (130-450); RED BLOOD COUNT 5.14 10^6/uL (4.20-5.40); RED CELL DISTRIBUTION WIDTH 13.7 % (12.0-15.0); WHITE BLOOD COUNT 25.1 x10^3/uL (4.8-10.8)
[2020-11-05 13:27] LABS: SLIDE REVIEW? Indicated
[2020-11-05 13:37] LABS: ALBUMIN 3.7 g/dL (3.2-5.5); ALBUMIN/GLOBULIN RATIO 0.9 (1.0-2.2); BILIRUBIN,TOTAL 0.6 mg/dL (0.2-1.0); CALCIUM 9.3 mg/dL (8.5-10.3); CREATININE 0.8 mg/dL (0.4-1.0); POTASSIUM 3.4 mmol/L (3.5-5.0); TOTAL PROTEIN 7.6 g/dL (6.7-8.2)
--- NOTE | 2020-11-05 13:37 | ED Physician Documentation ---
History of Present Illness - Stated complaint Stated Complaint: WEAKNESS - Chief complaint Chief Complaint: General - History obtained from History obtained from: Patient, Family - History of Present Illness Timing: Today Pain level max: 0 Pain level now: 0 - Additonal information Additional information: Patient is a 44-year-old female who states she felt nauseated, lightheaded and near syncopal today. She is unsure if she actually lost consciousness or not. She states she believes that she passed out in the car ride here and had an accidental bowel movement. She states that she does have a history of seizures, last seizure was about 5 years ago and she states it was related to opiate withdrawal. She states that she has not been using any opiates or other drugs recently. She states she does drink alcohol daily. She states "a few beers". She states her medications have not changed except she was not taking her lisinopril for a week or 2, restarted this 2 days ago. Did not take it today. Denies any abdominal pain, chest pain, shortness of breath, fevers, chills, cough, recent illness. No recent travel. Review of Systems Constitutional: denies: Fever, Chills GI: denies: Vomiting : denies: Dysuria Skin: denies: Rash Musculoskeletal: denies: Neck pain, Back pain Neurologic: denies: Headache PD PAST MEDICAL HISTORY - Past Medical History Past Medical History: Yes Cardiovascular: Hypertension Respiratory: Asthma - Past Surgical History Past Surgical History: Yes HEENT: Other - Present Medications Home Medications: Ambulatory Orders Medication Instructions Recorded Confirmed Clindamycin [Cleocin] 300 mg PO TID 7 Days #20 cap 10/03/20 HYDROcod/ACETAM 5/325 [[place] 5/325] 1 ea PO Q6H PRN #15 tablet 10/03/20 Lisinopril/Hydrochlorothiazide 1 each PO DAILY #20 tablet 10/03/20 [Zestoretic 20-12.5 mg Tablet] Lisinopril/Hydrochlorothiazide 1 each PO DAILY 10/03/20 10/03/20 [Zestoretic 20-25 mg Tablet] Ondansetron Odt [Zofran] 4 mg TL Q6H PRN #15 tablet 10/03/20 Sucralfate [Carafate] 1 gm PO QPM #30 tablet 10/03/20 cephALEXin [Keflex] 500 mg PO Q6H #20 cap 11/05/20 - Allergies Allergies/Adverse Reactions: Allergies Allergy/AdvReac Type Severity Reaction Status Date / Time No Known Drug Allergies Allergy Verified 11/05/20 12:43 - Social History Does the pt smoke?: No Smoking Status: Never smoker Does the pt drink ETOH?: Yes Does the pt have substance abuse?: No - Immunizations Immunizations are current?: No - POLST Patient has POLST: No PD ED PE NORMAL - Vitals Vital signs reviewed: Yes - General General: Alert and oriented X 3, No acute distress, Well developed/nourished - HEENT HEENT: Atraumatic, PERRL, Moist mucous membranes, Pharynx benign - Neck Neck: Supple, no meningeal sign - Cardiac Cardiac: RRR, Strong equal pulses - Respiratory Respiratory: No respiratory distress, Clear bilaterally - Abdomen Abdomen: Soft, Non tender, Non distended - Back Back: No spinal TTP - Derm Derm: Warm and dry - Extremities Extremities: No edema, No calf tenderness / cord - Neuro Neuro: Alert and oriented X 3, 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, No motor deficit, No sensory deficit, Normal speech Eye Opening: Spontaneous Motor: Obeys Commands Verbal: Oriented GCS Score: 15 - Psych Psych: Normal mood, Normal affect Results - Vitals Vitals: Vital Signs - 24 hr 11/05/20 11/05/20 11/05/20 12:32 13:02 13:04 Temperature 36.3 C L Heart Rate 77 86 Heart Rate [ 103 H Sitting] Heart Rate [ 117 H Standing] Heart Rate [ 89 Supine] Respiratory 14 15 Rate Blood Pressure 129/72 126/68 Blood Pressure 129/82 H [Sitting] Blood Pressure 109/70 [Standing] Blood Pressure 117/71 [Supine] O2 Saturation 99 96 Oxygen O2 Source Room air - EKG (time done) 1242 Rate: Rate (enter#) (83) Rhythm: NSR [place]: Normal Intervals: Normal NC, Prolonged QT (borderline) QRS: Normal Ischemia: Normal ST segments - Labs Labs: Laboratory Tests 11/05/20 11/05/20 11/05/20 13:19 13:19 13:19 WBC 25.1 H RBC 5.14 Hgb 13.6 Hct 42.8 MCV 83.3 MCH 26.5 L MCHC 31.8 L RDW 13.7 Plt Count 381 MPV 10.2 Neut # (Auto) 22.7 H Lymph # (Auto) 1.4 L [place] # (Auto) 0.8 Eos # (Auto) 0.1 Baso # (Auto) 0.1 Absolute Nucleated RBC 0.00 Nucleated RBC % 0.0 Manual Slide Review Indicated Sodium 138 Potassium 3.4 L Chloride 106 Carbon Dioxide 16 L Anion Gap 16.0 H BUN 22 H Creatinine 0.8 Estimated GFR (MDRD) 78 L Glucose 113 H Calcium 9.3 Total Bilirubin 0.6 AST 21 ALT 20 Alkaline Phosphatase 56 Total Protein 7.6 Albumin 3.7 Globulin 3.9 Albumin/Globulin Ratio 0.9 L Lipase 25 Urine Color Urine Clarity Urine pH Ur Specific [place] Urine Protein Urine Glucose (UA) Urine Ketones Urine Occult Blood Urine Nitrite Urine Bilirubin Urine Urobilinogen Ur Leukocyte Esterase Urine RBC Urine WBC Ur Squamous Epith Cells Amorphous Sediment Urine Bacteria Urine Mucus Ur Microscopic Review Urine Culture Comments Urine HCG, Qual Urine Opiates Screen Ur Oxycodone Screen Urine Methadone Screen Ur Propoxyphene Screen Ur Barbiturates Screen Ur Tricyclics Screen Ur Phencyclidine Scrn Ur Amphetamine Screen U Methamphetamines Scrn U Benzodiazepines Scrn Urine Cocaine Screen U Cannabinoids Screen Ethyl Alcohol < 5.0 11/05/20 11/05/20 13:40 13:40 WBC RBC Hgb Hct MCV MCH MCHC RDW Plt Count MPV Neut # (Auto) Lymph # (Auto) [place] # (Auto) Eos # (Auto) Baso # (Auto) Absolute Nucleated RBC Nucleated RBC % Manual Slide Review Sodium Potassium Chloride Carbon Dioxide Anion Gap BUN Creatinine Estimated GFR (MDRD) Glucose Calcium Total Bilirubin AST ALT Alkaline Phosphatase Total Protein Albumin Globulin Albumin/Globulin Ratio Lipase Urine Color DARK YELLOW Urine Clarity CLOUDY Urine pH 6.0 Ur Specific [place] 1.025 Urine Protein TRACE Urine Glucose (UA) NEGATIVE Urine Ketones NEGATIVE Urine Occult Blood SMALL H Urine Nitrite NEGATIVE Urine Bilirubin NEGATIVE Urine Urobilinogen 0.2 (NORMAL) Ur Leukocyte Esterase NEGATIVE Urine RBC 6-10 H Urine WBC 6-10 H Ur Squamous Epith Cells FEW Squamous Amorphous Sediment Rare Urine Bacteria Many H Urine Mucus Few Strands Ur Microscopic Review INDICATED Urine Culture Comments NOT INDICATED Urine HCG, Qual NEGATIVE Urine Opiates Screen NEGATIVE Ur Oxycodone Screen NEGATIVE Urine Methadone Screen NEGATIVE Ur Propoxyphene Screen NEGATIVE Ur Barbiturates Screen NEGATIVE Ur Tricyclics Screen NEGATIVE Ur Phencyclidine Scrn NEGATIVE Ur Amphetamine Screen NEGATIVE U Methamphetamines Scrn NEGATIVE U Benzodiazepines Scrn NEGATIVE Urine Cocaine Screen NEGATIVE U Cannabinoids Screen NEGATIVE Ethyl Alcohol - Rads (name of study) head CT Radiology: Prelim report reviewed, EMP read contemporaneously, See rad report (No acute intracranial process. ) PD MEDICAL DECISION MAKING - ED course Complexity details: reviewed results, re-evaluated patient, considered differential, d/w patient ED course: 44-year-old female with what sounds like a likely seizure today. She does have a history of seizures in the past but they were thought to be due to opiate abuse. She denies using any drugs or opiates. No acute findings on head CT. She does have a leukocytosis and evidence of metabolic acidosis, this will go along with the seizure as well. She has no abdominal pain, back pain, fevers, chills, urinary symptoms. She does have evidence of a UTI, we will treat for this. Patient denies any alcohol withdrawal or alcohol withdrawal seizures. She feels better after IV fluids. Not orthostatic. Ambulating with a normal gait. We will have her follow-up with her doctor for MRI and EEG. Patient and family counseled regarding signs and symptoms for which I believe and urgent re- evaluation would be necessary. Patient with good understanding of and agreement to plan and is comfortable going home at this time This document was made in part using voice recognition software. While efforts are made to proofread this document, sound alike and grammatical errors may occur. Departure - Departure Disposition: 01 Home, Self Care Clinical Impression: Seizure UTI (urinary tract infection) Qualifiers: Urinary tract infection type: acute cystitis Hematuria presence: without hematuria Qualified Code(s): N30.00 - Acute cystitis without hematuria Condition: Good Instructions: ED Seizure New Onset Unk Cause Follow-Up: Hanh Smallwood ARNP [Primary Care Provider] - Within 1 week Prescriptions: cephALEXin [Keflex] 500 mg PO Q6H #20 cap Comments: It appears that you may have had a seizure today. It is importantly follow-up closely with your doctor for further care. You were given IV fluids here. There are no acute findings on your head CT. It is recommended that you have a brain MRI and EEG. You should not drive or operate heavy machinery until cleared by your doctor. You should also not be in swimming pools or baths. Showers are okay. Return if you worsen. Discharge Date/Time: 11/05/20 15:41
[2020-11-05 13:44] LABS: BILIRUBIN,URINE NEGATIVE (NEGATIVE); GLUCOSE, URINE (UA) NEGATIVE (NEGATIVE); KETONES,URINE (UA) NEGATIVE (NEGATIVE); LEUKOCYTE ESTERASE, URINE NEGATIVE (NEGATIVE); NITRITE,URINE NEGATIVE (NEGATIVE); OCCULT BLOOD,URINE SMALL (NEGATIVE); PROTEIN,URINE TRACE mg/dL (NEGATIVE); UROBILINOGEN,URINE 0.2 (NORMAL) E.U./dL (NORMAL)
[2020-11-05 13:46] LABS: HCG UR QUAL NEGATIVE
[2020-11-05 13:49] LABS: AMORPHOUS SEDIMENT,UR Rare /LPF; BACTERIA,URINE Many /HPF (None Seen); CLARITY,URINE CLOUDY (CLEAR); MUCUS,URINE Few Strands; SQUAMOUS EPITHELIAL CELL,UR FEW Squamous (<= Few)
[2020-11-05 14:02] LABS: MUDS CUTOFF CONCENTRATIONS CUTOFF CONC BELOW:
[2020-11-05 14:13] LABS: AMPHETAMINE SCREEN,URINE NEGATIVE (NEGATIVE); BARBITURATE SCREEN,UR NEGATIVE (NEGATIVE); BENZODIAZEPINES SCREEN, URINE NEGATIVE (NEGATIVE); COCAINE SCREEN URINE NEGATIVE (NEGATIVE); METHADONE SCREEN, URINE NEGATIVE (NEGATIVE); METHAMPHETAMINES SCREEN, URINE NEGATIVE (NEGATIVE); OPIATE SCREEN, URINE NEGATIVE (NEGATIVE); OXYCODONE SCREEN, URINE NEGATIVE (NEGATIVE); PROPOXYPHENE SCREEN, URINE NEGATIVE (NEGATIVE); THC CANNABINOID SCREEN, URINE NEGATIVE (NEGATIVE); TRICYCLIC ANTIDEPRESSANT,URINE NEGATIVE (NEGATIVE)
--- NOTE | 2020-11-05 14:23 | CT Report ---
PROCEDURE: HEAD WO INDICATIONS: possible seizure TECHNIQUE: Noncontrast 4.5 mm thick angled axial sections acquired from the foramen magnum to the vertex. For r adiation dose reduction, the following was used: automated exposure control, adjustment of mA and/or kV according to patient size. COMPARISON: CT head 07/01/2019. FINDINGS: Image quality: Excellent. CSF spaces: Basal cisterns are patent. No extra-axial fluid collections. Ventricles are normal in size and shape. Brain: No midline shift. No intracranial masses or hemorrhage. Ohuser-white matter interface is norm al. Skull and face: Calvarium and visualized facial bones are intact, without suspicious lesions. Sinuses: Visualized sinuses and mastoids are clear. There is mild deformity of the frontal bone of the left frontal sinus. No adjacent edema. This is unchanged and possibly related to old injury.. IMPRESSION: 1. No acute intracranial process. Reviewed by: Carol Ann Long MD on 11/05/2020 2:22 PM PDT Approved by: Carol Ann Long MD on 11/05/2020 2:22 PM PDT Station ID: [id number]
[2020-11-05] MEDS ORDERED: cefTRIAXone 1 GM VIAL IVP STA (14:47)
== END 2020-11-05 15:41 | disposition home or self-care (01) ==
LOC: EDUNIT# → ED 12:30
DX: N30.00 Acute cystitis without hematuria (principal); R56.9 Unspecified convulsions; I10 Essential (primary) hypertension
CPT/HCPCS: 36415; 80053; 80306; 80320; 81001; 81003; 81025; 83690; 85025; 87086; 93005; 96361; 96374; 99283

== ENCOUNTER 2021-02-11 13:56 | Outpatient (CLI) | payer MEDICAID ==
--- NOTE | 2021-02-11 15:07 | MRI Report ---
PROCEDURE: Brain W/O INDICATIONS: SYNCOPE TECHNIQUE: Noncontrast axial T1 spin echo, axial T2 fast spin echo, sagittal and axial FLAIR, coronal T2 fast sp in echo, axial gradient echo, axial diffusion and ADC through the brain. COMPARISON: None. FINDINGS: Image quality: Excellent. CSF Spaces: Basal cisterns are patent. No extra-axial fluid collections. Ventricles are normal in size and shape. Brain: No intracranial masses or hemorrhage. Houser/white matter interface is normal. Brainstem appe ars normal. Diffusion-weighted images demonstrate no acute ischemic insult. No chronic ischemic ins ults. Normal intravascular flow voids are present. Skull and face: Calvarium has normal marrow signal. Orbits appear normal. Sinuses: Sinuses and mastoids are clear. IMPRESSION: Unremarkable brain MRI. No evidence acute stroke, hemorrhage, or mass. Reviewed by: Meet Crain MD on 02/11/2021 3:05 PM PDT Approved by: Meet Crain MD on 02/11/2021 3:05 PM PDT Station ID: [id number]
== END 2021-02-11 13:57 | disposition home or self-care (01) ==
LOC: DI 13:56
PROVIDERS: ATTEND Registered Nurse
DX: R55 Syncope and collapse (principal)

== ENCOUNTER 2021-06-16 10:40 | Emergency (ER) | payer MEDICAID ==
[2021-06-16] MEDS ORDERED: SODIUM CHLORIDE 0.9% 1,000 ML IV STA (11:33)
--- NOTE | 2021-06-16 11:35 | ED Physician Documentation ---
PD HPI SYNCOPE - Stated complaint Stated Complaint: FALL,UPPER BACK,NECK PX - Chief complaint Chief Complaint: Neuro - History obtained from History obtained from: Patient - History of Present Illness Witnessed: Unwitnessed Timing - onset: Enter time (0800), Today Duration: Seconds Preceding symptoms: Vision changes, Light headed Associated symptoms: Other (dizziness) Contributing factors: Just stood up Injury occurred: Fell, Head injury, Neck injury Similar symptoms before: Diagnosis (seizure and syncope) Recently seen: Not recently seen - Additional information Additional information: 45-year-old female who has had episodes both of seizure and of syncope has had an episode this morning she got out of bed about 8:00 in the morning went to the bathroom and on the way back from the bathroom she began to feel that she was going out and went to try to lean down fell collapsed and has injured her head and neck. This was an unwitnessed event she is uncertain whether she had a seizure or fainted. She states that both of these is happened to her previously and she is undergoing evaluation after an episode of a seizure that occurred in October. She states that she does not drink much fluids she has not drank anything this morning she is noted to be dizzy when she wakes up in the morning and she is on some lisinopril. She stopped the lisinopril 3 days ago. Review of Systems Constitutional: denies: Fever Eyes: denies: Decreased vision Ears: denies: Ear pain Nose: denies: Rhinorrhea / runny nose, Congestion Throat: denies: Sore throat Cardiac: denies: Chest pain / pressure, Palpitations Respiratory: denies: Dyspnea, Cough GI: denies: Abdominal Pain, Nausea, Vomiting : denies: Dysuria, Frequency Skin: denies: Rash Musculoskeletal: reports: Neck pain. denies: Back pain, Extremity pain Neurologic: reports: Syncope, Head injury. denies: Generalized weakness, Focal weakness, Numbness PD PAST MEDICAL HISTORY - Past Medical History Cardiovascular: Hypertension Respiratory: Asthma - Past Surgical History Past Surgical History: Yes HEENT: Other - Present Medications Home Medications: Ambulatory Orders Medication Instructions Recorded Confirmed Clindamycin [Cleocin] 300 mg PO TID 7 Days #20 cap 10/03/20 HYDROcod/ACETAM 5/325 [Eden 5/325] 1 ea PO Q6H PRN #15 tablet 10/03/20 Lisinopril/Hydrochlorothiazide 1 each PO DAILY #20 tablet 10/03/20 [Zestoretic 20-12.5 mg Tablet] Lisinopril/Hydrochlorothiazide 1 each PO DAILY 10/03/20 10/03/20 [Zestoretic 20-25 mg Tablet] Ondansetron Odt [Zofran] 4 mg TL Q6H PRN #15 tablet 10/03/20 Sucralfate [Carafate] 1 gm PO QPM #30 tablet 10/03/20 cephALEXin [Keflex] 500 mg PO Q6H #20 cap 11/05/20 Cyclobenzaprine [Flexeril] 10 mg PO TID PRN #20 tablet 06/16/21 HYDROcod/ACETAM 5/325 [Eden 5/325] 1 - 2 tablet PO Q6H PRN #14 tablet 06/16/21 - Allergies Allergies/Adverse Reactions: Allergies Allergy/AdvReac Type Severity Reaction Status Date / Time No Known Drug Allergies Allergy Verified 06/16/21 10:57 - Social History Does the pt smoke?: No Smoking Status: Never smoker Does the pt drink ETOH?: Yes Does the pt have substance abuse?: No - Immunizations Immunizations are current?: No - POLST Patient has POLST: No PD ED PE NORMAL - Vitals Vital signs reviewed: Yes (hypertensive ) - General General: Alert and oriented X 3, No acute distress, Well developed/nourished - HEENT HEENT: Atraumatic, PERRL, EOMI - Neck Neck: Supple, no meningeal sign, Other (bony tendeness to mid and lower cervical spine. 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, No motor deficit, No sensory deficit, Normal speech Eye Opening: Spontaneous Motor: Obeys Commands Verbal: Oriented GCS Score: 15 - Psych Psych: Normal mood, Normal affect Results - Vitals Vitals: Vital Signs - 24 hr 06/16/21 06/16/21 10:52 11:13 Temperature 36.8 C Heart Rate 112 H Respiratory 16 22 Rate Blood Pressure 187/122 H O2 Saturation 99 99 Oxygen O2 Source Room air - Labs Labs: Laboratory Tests 06/16/21 06/16/21 06/16/21 11:49 12:16 12:16 WBC 7.7 RBC 4.19 L Hgb 11.6 L Hct 35.4 L MCV 84.5 MCH 27.7 MCHC 32.8 RDW 15.2 H Plt Count 299 MPV 9.8 Neut # (Auto) 5.6 Lymph # (Auto) 1.6 Crowley # (Auto) 0.5 Eos # (Auto) 0.0 Baso # (Auto) 0.0 Absolute Nucleated RBC 0.00 Nucleated RBC % 0.0 Sodium 138 Potassium 3.9 Chloride 107 Carbon Dioxide 19 L Anion Gap 12.0 BUN 20 Creatinine 0.7 Estimated GFR (MDRD) 90 Glucose 97 Lactic Acid Calcium 8.8 Total Bilirubin < 0.2 L AST 25 ALT 23 Alkaline Phosphatase 64 Total Protein 7.6 Albumin 3.8 Globulin 3.8 Albumin/Globulin Ratio 1.0 Lipase 22 Urine Color YELLOW Urine Clarity CLEAR Urine pH 6.0 Ur Specific [place] >=1.030 H Urine Protein 100 H Urine Glucose (UA) NEGATIVE Urine Ketones NEGATIVE Urine Occult Blood MODERATE H Urine Nitrite NEGATIVE Urine Bilirubin NEGATIVE Urine Urobilinogen 0.2 (NORMAL) Ur Leukocyte Esterase NEGATIVE Urine RBC 6-10 H Urine WBC 0-3 Ur Squamous Epith Cells FEW Squamous Urine Bacteria Few Urine Casts 3-5 Hyaline Casts Urine Mucus Marked Strands Ur Microscopic Review INDICATED Urine Culture Comments NOT INDICATED Urine HCG, Qual NEGATIVE 06/16/21 12:16 WBC RBC Hgb Hct MCV MCH MCHC RDW Plt Count MPV Neut # (Auto) Lymph # (Auto) Crowley # (Auto) Eos # (Auto) Baso # (Auto) Absolute Nucleated RBC Nucleated RBC % Sodium Potassium Chloride Carbon Dioxide Anion Gap BUN Creatinine Estimated GFR (MDRD) Glucose Lactic Acid 2.0 Calcium Total Bilirubin AST ALT Alkaline Phosphatase Total Protein Albumin Globulin Albumin/Globulin Ratio Lipase Urine Color Urine Clarity Urine pH Ur Specific Don[place] Urine Protein Urine Glucose (UA) Urine Ketones Urine Occult Blood Urine Nitrite Urine Bilirubin Urine Urobilinogen Ur Leukocyte Esterase Urine RBC Urine WBC Ur Squamous Epith Cells Urine Bacteria Urine Casts Urine Mucus Ur Microscopic Review Urine Culture Comments Urine HCG, Qual - Rads (name of study) CT head Radiology: Prelim report reviewed (Impression: No intracranial hemorrhage is seen. No significant intracranial abnormality is seen. Remote fracture of the left frontal bone/frontal sinus.), EMP read indepedently, See rad report CT cervical spine Radiology: Prelim report reviewed (Impression: Negative for fracture.), EMP read indepedently, See rad report Procedures - IVC sono (time) 1130 Bedside IVC sono: IVC measures (cm) (0.91), Dehydration (est 1-2 liter deficit) PD MEDICAL DECISION MAKING - ED course Complexity details: reviewed old records, reviewed results, re-evaluated patient, considered differential, d/w patient ED course: 45-year-old female with a syncopal episode at home today has fallen and injured her head and neck. Imaging is unremarkable the patient is administered i ntravenous saline feels improved her heart rate comes down from the 110 range into the 90s. She has had prior episodes of seizure as well as syncope and today I suspect this is syncope related to her dehydration and my reasoning for that is her lactate was normal her volume was diminished on bedside examination with ultrasound and she responded to fluid with a reduction in her heart rate. She did have some improvement in her pain with use of intravenous Toradol. She feels that she may need further pain medication and I have prescribed pain medication a muscle relaxant for the patient that is short course. Departure - Departure Disposition: 01 Home, Self Care Clinical Impression: Dehydration determined by examination Syncope Qualifiers: Syncope type: vasovagal syncope Qualified Code(s): R55 - Syncope and collapse Cervical strain, acute Qualifiers: Encounter type: initial encounter Qualified Code(s): S16.1XXA - Strain of muscle, fascia and tendon at neck level, initial encounter Condition: Stable Instructions: ED Dehydration, ED Syncope Vasovagal, ED Sprain Strain Neck Follow-Up: Hanh Smallwood ARNP [Primary Care Provider] - Prescriptions: Cyclobenzaprine [Flexeril] 10 mg PO TID PRN #20 tablet PRN Reason: Spasms HYDROcod/ACETAM 5/325 [Eden 5/325] 1 - 2 tablet PO Q6H PRN #14 tablet PRN Reason: Pain Comments: Fabiana, today it looks like the reason for your falling out was from dehydration and not a seizure. The recommendation is to drink more fluids. The recommended amount for an adult is 2 quarts per day. A script for pain medication and muscle relaxant has been e-scribed to [facility] in [place].
[2021-06-16 12:03] LABS: BILIRUBIN,URINE NEGATIVE (NEGATIVE); GLUCOSE, URINE (UA) NEGATIVE (NEGATIVE); KETONES,URINE (UA) NEGATIVE (NEGATIVE); LEUKOCYTE ESTERASE, URINE NEGATIVE (NEGATIVE); NITRITE,URINE NEGATIVE (NEGATIVE); OCCULT BLOOD,URINE MODERATE (NEGATIVE); PROTEIN,URINE 100 mg/dL (NEGATIVE); UROBILINOGEN,URINE 0.2 (NORMAL) E.U./dL (NORMAL)
[2021-06-16 12:05] LABS: CLARITY,URINE CLEAR (CLEAR); HCG UR QUAL NEGATIVE
--- NOTE | 2021-06-16 12:12 | CT Report ---
PROCEDURE: CERVICAL SPINE WO INDICATIONS: collapse head and neck injury TECHNIQUE: Noncontrast 3 mm thick sections acquired from the skull base to the T4 level. Sagittal and coronal r eformats were then constructed. For radiation dose reduction, the following was used: automated exp osure control, adjustment of mA and/or kV according to patient size. COMPARISON: Correlation is made with the accompanying head CT, 06/16/2021. FINDINGS: Image quality: This study is limited by quantum mottle artifact. Bones: No fractures or dislocations. Visualized superior ribs are intact. Soft tissues: Prevertebral soft tissues are normal in thickness. No paravertebral hematomas. No ap ical pneumothoraces. IMPRESSION: Negative for fracture. Reviewed by: Jerrell Flannery MD on 06/16/2021 11:11 AM [facility] Approved by: Jerrell Flannery MD on 06/16/2021 11:11 AM [facility] Station ID: [id number]
--- NOTE | 2021-06-16 12:14 | CT Report ---
PROCEDURE: HEAD WO INDICATIONS: collapse head/neck injury TECHNIQUE: Noncontrast 4.5 mm thick angled axial sections acquired from the foramen magnum to the vertex. For r adiation dose reduction, the following was used: automated exposure control, adjustment of mA and/or kV according to patient size. COMPARISON: 12/05/2020, 07/01/2019. Correlation is also made with brain MRI, 02/11/2021. Correlation is a lso made with the accompanying cervical spine CT, 06/16/2021. FINDINGS: Image quality: There is streak artifact seen through the skull base. CSF spaces: Basal cisterns are patent. No extra-axial fluid collections. Ventricles are normal in size and shape. Brain: No midline shift. No intracranial masses or hemorrhage. Houser-white matter interface is norm al. Skull and face: There is again seen a remote deformity of the left frontal bone and the anterior asp ect of the left frontal sinus, as on series 7 image 21. Calvarium and visualized facial bones are oth erwise intact, without suspicious lesions. Sinuses: Visualized sinuses and mastoids are clear. IMPRESSION: No intracranial hemorrhage is seen. No significant intracranial abnormality is seen. Remote fracture of the left frontal bone/left frontal sinus. Reviewed by: Jerrell Flannery MD on 06/16/2021 11:13 AM [facility] Approved by: Jerrell Flannery MD on 06/16/2021 11:13 AM [facility] Station ID: [id number]
[2021-06-16 12:26] LABS: BASOPHILS % (AUTO) 0.4 %; EOSINOPHILS % (AUTO) 0.3 %; HCT - HEMATOCRIT 35.4 % (37.0-47.0); HGB - HEMOGLOBIN 11.6 g/dL (12.0-16.0); LYMPHOCYTES # (AUTO) 1.6 10^3/uL (1.5-3.5); LYMPHOCYTES % (AUTO) 20.2 %; MEAN CORPUSCULAR HEMOGLOBIN 27.7 pg (27.0-31.0); MEAN CORPUSCULAR HGB CONC 32.8 g/dL (32.0-36.0); MEAN CORPUSCULAR VOLUME 84.5 fL (81.0-99.0); MEAN PLATELET VOLUME 9.8 fL (7.9-10.8); MONOCYTES # (AUTO) 0.5 10^3/uL (0.0-1.0); NEUTROPHILS # (AUTO) 5.6 10^3/uL (1.5-6.6); NEUTROPHILS % (AUTO) 71.7 %; PLT - PLATELET COUNT 299 10^3/uL (130-450); RED BLOOD COUNT 4.19 10^6/uL (4.20-5.40); RED CELL DISTRIBUTION WIDTH 15.2 % (12.0-15.0); WHITE BLOOD COUNT 7.7 x10^3/uL (4.8-10.8)
[2021-06-16 12:31] LABS: WBC,URINE 0-3 /HPF (0-5)
[2021-06-16 12:32] LABS: BACTERIA,URINE Few /HPF (None Seen); MUCUS,URINE Marked Strands; SQUAMOUS EPITHELIAL CELL,UR FEW Squamous (<= Few)
[2021-06-16 12:43] LABS: ALBUMIN 3.8 g/dL (3.2-5.5); ALKALINE PHOSPHATASE 64 IU/L (42-121); ALT ALANINE AMINOTRANSFERASE 23 IU/L (10-60); AST ASPARTATE AMINOTRANSFERASE 25 IU/L (10-42); BILIRUBIN,TOTAL < 0.2 mg/dL (0.2-1.0); BUN - BLOOD UREA NITROGEN 20 mg/dL (6-20); CALCIUM 8.8 mg/dL (8.5-10.3); CARBON DIOXIDE - CO2 19 mmol/L (21-32); CHLORIDE 107 mmol/L (101-111); CREATININE 0.7 mg/dL (0.4-1.0); GFR - MDRD 90 (>89); GLUCOSE 97 mg/dL (70-100); LIPASE 22 U/L (22-51); POTASSIUM 3.9 mmol/L (3.5-5.0); SODIUM 138 mmol/L (135-145); TOTAL PROTEIN 7.6 g/dL (6.7-8.2)
[2021-06-16] MEDS ORDERED: KETOROLAC 30 MG/ML VIAL IVP STA (13:03)
[2021-06-16 13:40] VITALS: BP 177/118
== END 2021-06-16 14:15 | disposition home or self-care (01) ==
LOC: ED 10:40
DX: E86.0 Dehydration (principal); R55 Syncope and collapse; S16.1XXA Strain of muscle, fascia and tendon at neck level, initial encounter; S09.90XA Unspecified injury of head, initial encounter; W18.30XA Fall on same level, unspecified, initial encounter; Y92.9 Unspecified place or not applicable
CPT/HCPCS: 36415; 80053; 81001; 81003; 81025; 83605; 83690; 85025; 87086; 96361; 96374; 99284

== ENCOUNTER 2022-09-02 13:32 | Emergency (ER) | payer MEDICAID ==
--- NOTE | 2022-09-02 17:06 | ED Physician Documentation ---
History of Present Illness - Stated complaint Stated Complaint: BI LAT HAND PX - Chief complaint Chief Complaint: Ext Problem - Additonal information Additional information: 46-year-old female presents emergency department for evaluation of right hand numbness and tingling. Symptoms have become worse over the last few nights. She wakes up with pain and tingling in the hand. This is often associated with right-sided laying. 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 No falls or trauma. No fevers or swelling. Also reporting pain over the dorsum of the left hand at the site where there is been progressive swelling for the last few months. 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 HEENT: None Psych: None Musculoskeletal: None Derm: None - Past Surgical History Past Surgical History: Yes HEENT: Other - Present Medications Home Medications: Ambulatory Orders Medication Instructions Recorded Confirmed Lisinopril/Hydrochlorothiazide 1 each PO DAILY 10/03/20 01/15/22 [Zestoretic 20-25 mg Tablet] Albuterol Sulfate [Proair 1 - 2 puffs INH Q4HR PRN 01/15/22 01/15/22 Respiclick] Famotidine [Pepcid] 20 mg PO BID #60 tablet 01/15/22 - Allergies Allergies/Adverse Reactions: Allergies Allergy/AdvReac Type Severity Reaction Status Date / Time No Known Drug Allergies Allergy Verified 09/02/22 13:44 - Social History Does the pt smoke?: No Smoking Status: Never smoker Does the pt drink ETOH?: Yes Does the pt have substance abuse?: No - Immunizations Immunizations are current?: No - POLST Patient has POLST: No PD ED PE EXPANDED - Extremities Extremities: Right hand (Positive Phalen's. Normal flexion and extension. 2+ radial pulse. Neurovascular intact at this time.), Left hand (Mild swelling on the dorsum of the left hand mid carpal region. No fluctuance. No erythema.) Results - Vitals Vitals: Vital Signs - 24 hr 09/02/22 09/02/22 09/02/22 13:37 16:46 16:53 Temperature 36.3 C L Heart Rate 91 Respiratory 15 16 16 Rate Blood Pressure 137/91 H O2 Saturation 100 Oxygen O2 Source Room air PD Medical Decision Making - ED course Complexity details: d/w patient ED course: 46-year-old female presents emergency department for evaluation of bilateral hand pain. She has had progressive swelling on the dorsum of her left hand over the carpal region at the site where a tendon is present. Clinically this is not consistent with an infected cyst but does likely represent a ganglion cyst as is gotten progressively larger and more painful she is advised to follow closely with PCP for referral to hand surgeon. The right hand pain and numbness has been getting progressively worse over the last few days. Often wakes up at night when laying on her right side with numbness and tingling in the right hand. She does have a positive Phalen's at the bedside. No loss of motor strength. Clinically I am most suspicious for a carpal tunnel syndrome. I deferred imaging as there is no history of falls or trauma. Exam and history is not consistent with an infectious process. She was given a hand splint to wear especially at nighttime. Advised alternating doses of Motrin and Tylenol. Advise follow-up with PCP. Given my suspicion for carpal tunnel she may benefit from referral to physical therapy and/or an EMG and subsequently hand surgery if symptoms progressively worse Departure - Departure Disposition: 01 Home, Self Care Clinical Impression: Carpal tunnel syndrome on right, Ganglion cyst of tendon sheath of left hand Condition: Stable Record reviewed to determine appropriate education?: Yes Instructions: ED Carpal Tunnel Comments: You came to the emergency department today for evaluation of pain in both your right and left hand. The swelling on the top of your left hand runs along a tendon and this is most likely a ganglion cyst. Please discuss this with your primary doctor. As it is becoming more symptomatic and painful referral to a hand surgeon may be indicated for evaluation of removal. The numbness and pain in your right hand however is most consistent with carpal tunnel syndrome. This is inflammation of the nerve sheaths as they run through the carpal bones. I would like you to wear the wrist splint especially at night or at any time when you are finding that you are having worsening pain. You can take 500 mg of Tylenol 3-4 times a day or alternate with 600 mg of ibuprofen 2-3 times a day. It is important to avoid positions that exacerbate your symptoms such as laying on your right side. Return to the ER if you have fevers redness or swelling indicating infection
[2022-09-02 17:32] VITALS: BP 131/85
== END 2022-09-02 17:32 | disposition home or self-care (01) ==
LOC: ED 13:32
DX: G56.01 Carpal tunnel syndrome, right upper limb (principal); M67.442 Ganglion, left hand
CPT/HCPCS: 29125; 99282; 99283

== ENCOUNTER 2023-01-30 09:32 | Emergency (ER) | payer SELFPAY ==
[2023-01-30 10:09] LABS: BILIRUBIN,URINE NEGATIVE (NEGATIVE); GLUCOSE, URINE (UA) NEGATIVE (NEGATIVE); KETONES,URINE (UA) NEGATIVE (NEGATIVE); LEUKOCYTE ESTERASE, URINE SMALL (NEGATIVE); NITRITE,URINE NEGATIVE (NEGATIVE); OCCULT BLOOD,URINE NEGATIVE (NEGATIVE); PH,URINE 6.5 PH (5.0-7.5); PROTEIN,URINE 100 mg/dL (NEGATIVE); UROBILINOGEN,URINE 1 (NORMAL) E.U./dL (NORMAL)
[2023-01-30 10:13] LABS: CLARITY,URINE SL. CLOUDY (CLEAR)
[2023-01-30 10:20] LABS: AMORPHOUS SEDIMENT,UR Few /LPF; BACTERIA,URINE Few /HPF (None Seen); MUCUS,URINE Marked Strands; RBC,URINE 0-5 /HPF (0-5); SQUAMOUS EPITHELIAL CELL,UR MANY Squamous (<= Few)
[2023-01-30] MEDS ORDERED: KETOROLAC 60 MG/2 ML VIAL IM STA (10:53)
[2023-01-30] MEDS ORDERED: DEXAMETHASONE 10 MG/ML VIAL IM STA (10:53)
--- NOTE | 2023-01-30 11:19 | XRAY Report ---
PROCEDURE: Cervical Spine 2 View INDICATIONS: pain TECHNIQUE: 4 view(s) of the cervical spine were acquired. COMPARISON: CT cervical spine 06/16/2021. FINDINGS: Bones: No fractures or dislocations to the T1 level. The lateral masses of C1 appear intact on the odontoid view. No suspicious bony lesions. Exaggerated lordosis of the lower cervical spine, more pr ominent. Soft tissues: No prevertebral soft tissue swelling. IMPRESSION: Exaggerated lordosis of the lower cervical spine. This could be due to positioning or muscle spasm. Reviewed by: Thuan Arvizu MD on 01/30/2023 11:17 AM PDT Approved by: Thuan Arvizu MD on 01/30/2023 11:17 AM PDT Station ID: [id number]
[2023-01-30 11:48] LABS: CALCIUM 9.5 mg/dL (8.5-10.3); CREATININE 0.7 mg/dL (0.6-1.3); POTASSIUM 3.8 mmol/L (3.5-4.5)
[2023-01-30 12:15] VITALS: BP 146/89; O2SAT 99
--- NOTE | 2023-01-30 12:17 | ED Physician Documentation ---
PD HPI DYSPNEA - Stated complaint Stated Complaint: PALPITATIONS/BACK PX - Chief complaint Chief Complaint: Cardiac - History obtained from History obtained from: Patient - Additional information Additional information: The patient comes to the emergency department chief complaint of spasms in her neck causing numbness and tingling to go down her right arm. She also states that she has been having separate incidences of palpitations. She denies any chest pain or shortness of breath though she does get some chest tightness when she has the palpitations. The patient denies any history of any cardiac diagnoses. No lightheadedness or syncope. No recent neck injury. No other complaints at this time. The patient does note she spends a lot of time looking down and hunched over. 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 HEENT: None Psych: None Musculoskeletal: None Derm: None - Past Surgical History Past Surgical History: Yes HEENT: Other - Present Medications Home Medications: Ambulatory Orders Medication Instructions Recorded Confirmed Lisinopril/Hydrochlorothiazide 1 each PO DAILY 10/03/20 01/30/23 [Zestoretic 20-25 mg Tablet] Albuterol Sulfate [Proair 1 - 2 puffs INH Q4HR PRN 01/15/22 01/15/22 Respiclick] Famotidine [Pepcid] 20 mg PO BID #60 tablet 01/15/22 Cyclobenzaprine [Flexeril] 10 mg PO TID PRN #20 tablet 01/30/23 HYDROcod/ACETAM 5/325 [Rockwood 5/325] 1 - 2 tablet PO Q6H PRN #14 tablet 01/30/23 - Allergies Allergies/Adverse Reactions: Allergies Allergy/AdvReac Type Severity Reaction Status Date / Time No Known Drug Allergies Allergy Verified 09/02/22 13:44 - Social History Does the pt smoke?: No Smoking Status: Never smoker Does the pt drink ETOH?: Yes Does the pt have substance abuse?: No - Immunizations Immunizations are current?: No - POLST Patient has POLST: No PD ED PE NORMAL - Vitals Vital signs reviewed: Yes - General General: Alert and oriented X 3, No acute distress, Well developed/nourished - HEENT HEENT: Atraumatic, PERRL, EOMI, Moist mucous membranes - Neck Neck: Supple, no meningeal sign - Cardiac Cardiac: RRR, No murmur, Strong equal pulses - Respiratory Respiratory: No respiratory distress, Clear bilaterally - Abdomen Abdomen: Soft, Non tender, Non distended - Derm Derm: Normal color, Warm and dry, No rash - Extremities Extremities: No deformity, No edema - Neuro Neuro: Alert and oriented X 3, 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 Relevant findings are: Rate: Rate (enter#) (94) Rhythm: NSR Hustle: LAD (Borderline) Intervals: Normal AK QRS: Normal Ischemia: Normal ST segments Compare to prior EKG: Old EKG unavailable Computer interpretation: Agree with computer - Labs Labs: Laboratory Tests 01/30/23 01/30/23 09:50 11:23 Sodium 137 Potassium 3.8 Chloride 110 Carbon Dioxide 18 L Anion Gap 9.0 BUN 16 Creatinine 0.7 Estimated GFR (MDRD) 90 Glucose 115 H Calcium 9.5 Urine Color YELLOW Urine Clarity SL. CLOUDY Urine pH 6.5 Ur Specific [place] >=1.030 H Urine Protein 100 H Urine Glucose (UA) NEGATIVE Urine Ketones NEGATIVE Urine Occult Blood NEGATIVE Urine Nitrite NEGATIVE Urine Bilirubin NEGATIVE Urine Urobilinogen 1 (NORMAL) Ur Leukocyte Esterase SMALL H Urine RBC 0-5 Urine WBC 6-10 H Ur Squamous Epith Cells MANY Squamous H Amorphous Sediment Few Urine Bacteria Few Urine Mucus Marked Strands Ur Microscopic Review INDICATED Urine Culture Comments NOT INDICATED - Rads (name of study) Cervical spine x-ray series Relevant Findings:: Final report received, See rad report (Exaggerated lordosis of the lower cervical spine, consistent with muscle spasm) PD Medical Decision Making - ED course Complexity details: reviewed results, re-evaluated patient, considered brian topete, d/w patient ED course: . Patient was worked up with EKG, labs, and x-ray series of the neck. The x- ray series showed likely muscle spasm, based on positioning of the neck. Patient did not have any abnormal heart rhythm or ectopy while in the emergency department. I Have advised patient that she will need to follow-up with her primary to discuss Having event monitoring and further evaluation of her palpitations, should they continue. I have prescribed symptomatic management for her neck pain and spasm. We have discussed the usual indications for follow-up and return. Departure - Departure Disposition: 01 Home, Self Care Clinical Impression: Palpitations with regular cardiac rhythm, Neck muscle spasm Condition: Stable Instructions: ED Spasm Neck No Injury, ED Palpitations Prescriptions: Cyclobenzaprine [Flexeril] 10 mg PO TID PRN #20 tablet PRN Reason: Spasms HYDROcod/ACETAM 5/325 [Rockwood 5/325] 1 - 2 tablet PO Q6H PRN #14 tablet PRN Reason: Pain Comments: Your labs, EKG, and x-ray series all look fairly good. The positioning of your neck does show some evidence of muscle spasm and that is probably partly why are you having the discomfort not only in your neck but the numbness in your arms. Please take the medications prescribed as needed, along with ibuprofen. The prescriptions have been electronically transmitted to the [facility] in [place]. As far as your palpitations, as we discussed, the EKG and monitor readings have not shown any abnormal beats, but event monitoring with your doctor may be a good next step if you continue to have a lot of palpitations, especially ones that are making you feel faint. Be sure you drink plenty of water and try to avoid any beverages that are stimulating, like energy drinks or caffeine. Forms: PCP List Discharge Date/Time: 01/30/23 12:43
== END 2023-01-30 12:43 | disposition home or self-care (01) ==
LOC: ED 09:32
DX: M62.838 Other muscle spasm (principal); R00.2 Palpitations
CPT/HCPCS: 36415; 80048; 81001; 81003; 87086; 93005; 96372; 99284

== ENCOUNTER 2023-11-28 10:09 | Emergency (ER) | payer OTHER ==
[2023-11-28 10:23] VITALS: O2SAT 99
--- NOTE | 2023-11-28 11:41 | ED Physician Documentation ---
History of Present Illness - Stated complaint Stated Complaint: DRISCOLL - Chief complaint Chief Complaint: General - History obtained from History obtained from: Patient - Additonal information Additional information: Her insurance lapsed and she does not have access to primary care. She is out of her lisinopril/hydrochlorothiazide. She got a refill last month from the urgent care but is out again. She is having some mild headaches. No other specific complaints. PD PAST MEDICAL HISTORY - Past Medical History Cardiovascular: Hypertension Respiratory: Asthma Neuro: Seizure disorder Endocrine/Autoimmune: None GI: GERD STUDIO GRIP: None : None HEENT: None Psych: None Musculoskeletal: None Derm: None - Past Surgical History Past Surgical History: Yes HEENT: Other - Present Medications Home Medications: Ambulatory Orders Medication Instructions Recorded Confirmed Omeprazole 20 mg PO DAILY 09/25/23 11/28/23 Aspirin Chewable [[facility] [place] 81 mg PO DAILY tab 09/26/23 11/28/23 Aspirin] Lisinopril/Hydrochlorothiazide 1 each PO DAILY #30 tab 09/26/23 11/28/23 [Zestoretic 20-25 mg Tablet] Lisinopril/Hydrochlorothiazide 1 each PO DAILY #90 tablet 11/28/23 [Zestoretic 20-25 mg Tablet] - Allergies Allergies/Adverse Reactions: Allergies Allergy/AdvReac Type Severity Reaction Status Date / Time No Known Drug Allergies Allergy Verified 11/28/23 10:23 - Social History Does the pt smoke?: No Smoking Status: Never smoker Does the pt drink ETOH?: Yes Does the pt have substance abuse?: No - Immunizations Immunizations are current?: No - POLST Patient has POLST: No PD ED PE NORMAL - Vitals Vital signs reviewed: Yes - General General: Alert and oriented X 3, No acute distress - HEENT HEENT: PERRL - Neck Neck: Supple, no meningeal sign - Extremities Extremities: No edema - Psych Psych: Normal mood, Normal affect Results - Vitals Vitals: Vital Signs - 24 hr 11/28/23 10:17 Temperature 36.3 C L Heart Rate 73 Respiratory 20 Rate Blood Pressure 158/106 H O2 Saturation 99 Oxygen O2 Source Room air Departure - Departure Disposition: 01 Home, Self Care Clinical Impression: Hypertension, Medication refill Condition: Good Record reviewed to determine appropriate education?: Yes Instructions: ED HTN Established Prescriptions: Lisinopril/Hydrochlorothiazide [Zestoretic 20-25 mg Tablet] 1 each PO DAILY #90 tablet Comments: I sent the prescription electronically to the [facility] pharmacy at the corner of [address] Do your best to establish primary care for more appropriate follow-up not through the emergency department. Return for new or worsening symptoms.
[2023-11-28 11:59] VITALS: BP 164/99
== END 2023-11-28 11:52 | disposition home or self-care (01) ==
LOC: ED 10:09
DX: Z76.0 Encounter for issue of repeat prescription (principal); I10 Essential (primary) hypertension
CPT/HCPCS: 99282; 99283

== ENCOUNTER 2024-01-11 10:33 | Emergency (ER) | payer MEDICAID ==
[2024-01-11 10:44] VITALS: O2SAT 100
--- NOTE | 2024-01-11 10:50 | ED Physician Documentation ---
PD HPI HEAD INJURY - Stated complaint Stated Complaint: HEAD PX,DRISCOLL,NAUSEA - Chief complaint Chief Complaint: Trauma Hd/Nk - History obtained from History obtained from: Patient - History of Present Illness Mechanism of head injury: Fell Where head injury occurred: Home Timing - onset: How many days ago (4) Location of injury: Right Quality of pain: Throbbing, Aching, Dull Associated symptoms: AMS (feeling sluggish thought processing, headache and some off balance still fter 4 days.). 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 : None HEENT: None Psych: None Musculoskeletal: None Derm: None - Past Surgical History Past Surgical History: Yes HEENT: Other - Present Medications Home Medications: Ambulatory Orders Medication Instructions Recorded Confirmed Omeprazole 20 mg PO DAILY 09/25/23 01/11/24 Lisinopril/Hydrochlorothiazide 1 each PO DAILY #90 tablet 11/28/23 01/11/24 [Zestoretic 20-25 mg Tablet] HYDROcod/ACETAM 5/325 [[place] 5/325] 1 ea PO Q6H PRN #12 tablet 01/11/24 Ibuprofen 400 mg PO Q6HR PRN 01/11/24 01/11/24 Meloxicam [Mobic] 7.5 mg PO BID 10 Days #20 tablet 01/11/24 Ondansetron Odt [Zofran] 4 mg TL Q6H PRN #10 tablet 01/11/24 - Allergies Allergies/Adverse Reactions: Allergies Allergy/AdvReac Type Severity Reaction Status Date / Time No Known Drug Allergies Allergy Verified 01/11/24 15:39 - Social History Does the pt smoke?: No Smoking Status: Former smoker Does the pt drink ETOH?: Yes Does the pt have substance abuse?: No - Immunizations Immunizations are current?: No - POLST Patient has POLST: No PD ED PE NORMAL - Vitals Vital signs reviewed: Yes - General General: Alert and oriented X 3, No acute distress, Well developed/nourished - Neck Neck: Supple, no meningeal sign, No bony TTP, C-Spine cleared by NEXUS criteria - Derm Derm: Normal color, Warm and dry - Neuro Neuro: Alert and oriented X 3, 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 ) Results - Vitals Vitals: Oxygen O2 Source Room air - Rads (name of study) head CT Relevant Findings:: Prelim report reviewed, EMP independent interpretation of test (no ICH nor acute findings. ) PD Medical Decision Making - ED course Complexity details: considered differential (fall with head injury 4 days ago and persisting concussive symptoms of sluggish thinking, headache, and feels off balance walking. No focal deficits. Head CT is okay. discussed concussive symptoms and expected/hopeful timecourse with her. Given some meds for headache here. She is taking bus home. ), d/w patient Departure - Departure Disposition: Home, Self Care Clinical Impression: Accidental fall, Mild concussion Condition: Stable Record reviewed to determine appropriate education?: Yes Instructions: ED Concussion Follow-Up: Hanh Smallwood ARNP [Primary Care Provider] - Prescriptions: Meloxicam [Mobic] 7.5 mg PO BID 10 Days #20 tablet HYDROcod/ACETAM 5/325 [[place] 5/325] 1 ea PO Q6H PRN #12 tablet PRN Reason: Pain Ondansetron Odt [Zofran] 4 mg TL Q6H PRN #10 tablet PRN Reason: Nausea / Vomiting Comments: Your head CT scan does not show any fractures or bleeding. Your symptoms would be consistent with a mild concussion. Most commonly these symptoms last just 2 or 3 days but sometimes it can be 2 or 3 weeks or a bit longer. We can try to help on your symptoms with staying adequately hydrated. Anti- inflammatory twice daily to help with some of the symptoms and headache. Add ondansetron if needed for nausea. To that add Tylenol/acetaminophen 500 650 mg 4 times daily for pains or headache or hydrocodone/acetaminophen if needed for worse headache, particularly at night for sleep. Try to avoid excess physical activity and cognitive activity, particularly fast changing seen such as kera or action movies. Slow paced visual is okay such as email etc. light activity is good. There often can be some disruption of sleep with a mild concussion. Some Benadryl at night can be used if needed. Or pain medicine. I sent your prescriptions to your preferred pharmacy. Follow-up with your primary care if not improved over the next week or so. I am prescribing a short course of narcotic pain medication for you. These are potentially dangerous and addictive medications that should be used carefully. These medications may constipate you. Take an [id number] stool softener such as docusate twice daily with plenty of water while taking these medications. If you go 24 hours without a bowel movement, take [id number] MiraLAX, per package instructions. Do not drink or drive while taking these medications. If you received narcotic or sedating medications while in the emergency department do not drive for 24 hours. Store this medication in a safe, secure place and out of reach of children. It is a violation of federal law to give or sell this medication to another person or to use in a manner other than prescribed. The ED will not refill narcotic prescriptions, including prescriptions lost or stolen. You can dispose of unwanted medications at the [facility]'s office or at several pharmacies such as [facility]. Forms: PCP List, Activity restrictions Discharge Date/Time: 01/11/24 13:18
[2024-01-11] MEDS: HYDROcod/ACETAM 5/325 MG TABLET PO STA (11:21)
[2024-01-11] MEDS: KETOROLAC 30 MG/ML VIAL IM STA (11:21)
--- NOTE | 2024-01-11 12:04 | CT Report ---
PROCEDURE: Head WO INDICATIONS: fall 4 days ago, persistent concussive sx. TECHNIQUE: Noncontrast 4.5 mm thick angled axial sections acquired from the foramen magnum to the vertex. For r adiation dose reduction, the following was used: automated exposure control, adjustment of mA and/or kV according to patient size. COMPARISON: 06/16/2021. FINDINGS: Image quality: Excellent. CSF spaces: Basal cisterns are patent. No extra-axial fluid collections. Ventricles are normal in size and shape. Brain: No midline shift. No intracranial masses or hemorrhage. Houser-white matter interface is norm al. Volume loss is greater than expected for patient age. Skull and face: Calvarium and visualized facial bones are intact, without suspicious lesions. Sinuses: Visualized sinuses and mastoids are clear. IMPRESSION: 1. No acute intracranial abnormality. 2. Volume loss, greater than expected for patient age. Reviewed by: Meet Crain MD on 01/11/2024 12:03 PM PDT Approved by: Meet Crain MD on 01/11/2024 12:03 PM PDT Station ID: [id number]
[2024-01-11 13:18] VITALS: BP 155/86
== END 2024-01-11 13:18 | disposition home or self-care (01) ==
LOC: ED 10:33
DX: S06.0XAA Concussion with loss of consciousness status unknown, initial encounter (principal); W01.190A Fall on same level from slipping, tripping and stumbling with subsequent striking against furniture, initial encounter; Z87.891 Personal history of nicotine dependence; R55 Syncope and collapse; S06.0XAD Concussion with loss of consciousness status unknown, subsequent encounter
CPT/HCPCS: 70450; 96372; 99283; 99284; A9270; Q0162

== ENCOUNTER 2024-01-11 15:16 | Outpatient (CLI) | payer MEDICAID | END 2024-01-11 15:17 | disposition critical access hospital (66) | LOC: EMS 15:16 | DX: R42 Dizziness and giddiness (principal) | CPT/HCPCS: A0425; A0429; A0999 ==

== ENCOUNTER 2024-01-11 15:24 | Emergency (ER) | payer MEDICAID ==
--- NOTE | 2024-01-11 15:42 | ED Physician Documentation ---
PD HPI SYNCOPE - Stated complaint Stated Complaint: DIZZY - Chief complaint Chief Complaint: General - History obtained from History obtained from: Patient - History of Present Illness Witnessed: Unwitnessed Timing - onset: How many minutes ago (she was waiting for bus at [facility], having been to ED shortly prior for concussive symptoms. She says she felt lightheaded when stood up and nearly fainted. Helped back into ER by bystanders. 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 HEENT: None Psych: None Musculoskeletal: None Derm: None - Past Surgical History Past Surgical History: Yes HEENT: Other - Present Medications Home Medications: Ambulatory Orders Medication Instructions Recorded Confirmed Omeprazole 20 mg PO DAILY 09/25/23 01/11/24 Lisinopril/Hydrochlorothiazide 1 each PO DAILY #90 tablet 11/28/23 01/11/24 [Zestoretic 20-25 mg Tablet] HYDROcod/ACETAM 5/325 [[place] 5/325] 1 ea PO Q6H PRN #12 tablet 01/11/24 Ibuprofen 400 mg PO Q6HR PRN 01/11/24 01/11/24 Meloxicam [Mobic] 7.5 mg PO BID 10 Days #20 tablet 01/11/24 Ondansetron Odt [Zofran] 4 mg TL Q6H PRN #10 tablet 01/11/24 - Allergies Allergies/Adverse Reactions: Allergies Allergy/AdvReac Type Severity Reaction Status Date / Time No Known Drug Allergies Allergy Verified 01/11/24 15:39 - Social History Does the pt smoke?: No Smoking Status: Never smoker Does the pt drink ETOH?: Yes Does the pt have substance abuse?: No - Immunizations Immunizations are current?: No - POLST Patient has POLST: No PD ED PE NORMAL - Vitals Vital signs reviewed: Yes - General General: Alert and oriented X 3, No acute distress, Well developed/nourished - Cardiac Cardiac: RRR, No murmur - Respiratory Respiratory: No respiratory distress, Clear bilaterally Results - Vitals Vitals: Oxygen O2 Source Room air PD Medical Decision Making - ED course Complexity details: considered differential (lightheaded at busstop having just been to ED for concussive symptoms from 4 days ago. Did get pain med in ED which may have enhanced some lightheaded. She is appearing and feeling well by time back in ER. Ate sandwich. vitals are okay. Regular heart rhythm. I did not feel further workup needed. ), d/w patient Departure - Departure Disposition: 01 Home, Self Care Clinical Impression: Near syncope, Mild concussion Condition: Stable Instructions: ED Near Syncope Unkn Comments: I presume the lightheaded and near fainting was related to under hydration given that you would and here at the ER earlier and did not have an opportunity for lunch etc. There could have been some effect from the medicine you received here earlier as well with the pain medicine. I presume he should be feeling better having had some sandwich and juice etc. here at this time. Stay well-hydrated through the day. Forms: PCP List Discharge Date/Time: 01/11/24 16:50
[2024-01-11] MEDS: ACETAMINOPHEN 500 MG TABLET PO STA (16:09)
[2024-01-11] MEDS: ONDANSETRON ODT 4 MG TABLET TL STA (16:09)
[2024-01-11 16:55] VITALS: BP 149/81; O2SAT 100
== END 2024-01-11 16:50 | disposition home or self-care (01) ==
LOC: ED 15:24
DX: R55 Syncope and collapse (principal); S06.0XAD Concussion with loss of consciousness status unknown, subsequent encounter; X58.XXXD Exposure to other specified factors, subsequent encounter
CPT/HCPCS: 99283